=== PATIENT | female | born 1965 | race Caucasian/White ===

== ENCOUNTER 2023-01-17 09:35 | Inpatient (IN) ==
[2023-01-17 10:42] LABS: Basophils # (auto) 0.03 K/uL (0-0.2); Basophils % (auto) 0.6 %; Eosinophils # (auto) 0.11 K/uL (0-0.50); Eosinophils % (auto) 2.1 %; Hematocrit (blood only) 33.2 % (37.0-47.0); Hemoglobin 11.1 g/dl (12.0-16.0); Immature Granulocytes # (auto) 0.02 K/uL (0.01-0.20); Immature Granulocytes % (auto) 0.4 %; Lymphocytes # (auto) 0.96 K/uL (1.2-3.4); Lymphocytes % (auto) 18.1 %; Mean Corpuscular Hgb Conc 33.4 g/dL (32.0-36.0); Mean Corpuscular Volume 89.7 fL (80.0-100.0); Mean Platelet Volume 10.5 fL (9.4-12.4); Monocytes # (auto) 0.26 K/uL (0.11-0.59); Monocytes % (auto) 4.9 %; Neutrophils # (auto) 3.92 K/uL (1.40-6.50); Neutrophils % (auto) 73.9 %; Platelet Count 183 K/uL (130-400); RDW Coefficient of Variation 14.5 % (11.5-14.5); RDW Standard Deviation 46.6 fL (36.4-46.3)
[2023-01-17 11:03] LABS: Anion Gap 9 (3-11); BUN Creatinine Ratio 19.6 (10-20); Blood Urea Nitrogen 9 mg/dl (6-23); Calcium 9.3 mg/dl (8.6-10.3); Carbon Dioxide 26 mmol/L (21-32); Chloride 105 mmol/L (98-107); Est GFR (African American) 126.2 ml/min; Est GFR (Non-African American) 108.9 ml/min; Glucose 102 mg/dl (70-99(Fasting)); Potassium 3.9 mmol/L (3.5-5.1); Sodium 140 mmol/L (136-145)
[2023-01-17 11:33] LABS: Prothrombin Time 11.4 Seconds (9.0-12.0)
--- NOTE | 2023-01-17 12:21 | Emergency Department Note ---
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 On arrival the patient is encephalopathic unable to follow commands but moving all extremities equally. Abdomen is nontender. Approximate 1 cm seen site of the mid upper abdomen where previous PEG tube had been displaced is without evidence of infection, discharge or bleeding. WBC and platelets within normal limits. H/H 11.1/33.2 without prior for comparison. Sodium 140 electrolytes otherwise unremarkable. Chemistry without metabolic acidosis. COVID-19 RNA, NAAT test negative. Case d/w [place] with Dr. Gabriella BACON who evaluated the patient at the bedside. Appreciate consultation and recommend ations for CT and medicine admission. CT abd/pelvis obtained and was negative for acute abnormalities. Patient referred for admission for continued supportive care and GI consultation. Case was discussed with [place], with Dr. Skip locke who will evaluate the patient for admission. Triage Nursing notes reviewed and agree them. Prior/outside medical records reviewed Vital Signs: reviewed Differential diagnosis: Feeding tube displacement, infection, intraabdominal trauma, obstruction among others considered. ER treatment provided: See below. Laboratory studies: See below Imaging studies: See below Consultation(s): [place] with [place], with Dr. 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 ROS: See above HPI for pertinent positives & negatives. A total of 10 systems reviewed and were otherwise negative. VITALS:See Below PHYSICAL EXAMINATION: GENERAL: Awake, encephalopathic, chronically ill-appearing, in no distress HENT: Normocephalic, atraumatic. Oropharynx with dry mucous membranes and otherwise unremarkable. EYES: Normal conjunctiva. Sclera non-icteric. NECK: Supple. No nuchal rigidity. FROM. No JVD. RESPIRATORY: Clear to auscultation. CARDIAC: Regular rate, normal rhythm. Extremities warm and well perfused. Pulses equal. ABDOMEN: Soft, non-distended. No tenderness to palpation. No rebound or guarding. ~1cm mid upper abdominal incision site of displaced PEG tube without discharge or bleeding. No crepitus. RECTAL: Deferred. MUSCULOSKELETAL: Chest examination reveals no tenderness. The back is symmetrical on inspection without obvious abnormality. There is no CVA tenderness to palpation. No joint edema. LOWER EXTREMITIES: Calves are equal size bilaterally and non-tender. No edema. No discoloration. NEURO: Encephalopathic. Moving all extremities equally. SKIN: No rash or jaundice noted. Larry Elizabeth MD Past Med/Surg History Medical History Compression fracture of T11 vertebra Encephalopathy HLD (hyperlipidemia) HTN (hypertension) Impaired swallowing Paranoid schizophrenia Surgical History History of colonoscopy 2019 History of esophagogastroduodenoscopy (EGD) 01/05/2023. At [facility] [place]. PEG tube placement secondary to neurological disorder causing impaired swallowing Family History Other Cancer Diabetes Hypertension Social History Smoking Status: Unknown if ever smoked Hx Alcohol Use: No Hx Substance Use: No Feels Safe at Home: Yes Allergies Allergies Allergy/AdvReac Type Severity Reaction Status Date / Time haloperidol [From Haldol] Allergy Unknown Unknown Unverified 01/17/23 12:35 Penicillins Allergy Unknown Unknown Unverified 01/17/23 12:35 tetanus toxoid, adsorbed Allergy Unknown Unknown Unverified 01/17/23 12:35 Home Meds Home Medications Medication Instructions Recorded Confirmed acetaminophen 325 mg tablet 650 mg PO Q4 PRN Pain 01/17/23 01/17/23 (Tylenol) bisacodyl 10 mg rectal suppository 10 mg UT DAILY PRN Constipation 01/17/23 01/17/23 dextrose 40 % oral gel 15 g PO ONCE PRN Hypoglycemia 01/17/23 01/17/23 dextrose 50 % in water (D50W) 25 g IV ONCE PRN Hypoglycemia 01/17/23 01/17/23 enoxaparin 40 mg/0.4 mL 40 mg subcut DAILY 01/17/23 01/17/23 subcutaneous syringe levetiracetam 1,000 mg tablet 1,000 mg PO Q12H 01/17/23 01/17/23 (Keppra) magnesium hydroxide 400 mg/5 mL 30 ml PO DAILY PRN Constipation 01/17/23 01/17/23 oral suspension (Milk of Magnesia) omeprazole magnesium 10 mg oral 40 mg PO DAILY 01/17/23 01/17/23 suspension,delayed release polyethylene glycol 3350 17 17 g PO DAILY PRN Constipation 01/17/23 01/17/23 gram/dose oral powder (Miralax) sennosides 8.6 mg-docusate sodium 1 tab-cap PO DAILY PRN Constipation 01/17/23 01/17/23 50 mg tablet (Senokot-S) sodium phosphates 19 gram-7 118 ml UT DAILY PRN Constipation 01/17/23 01/17/23 gram/118 mL enema (Fleet Enema) Results & Data (ED) Vital Signs Vital Signs - 24 hr 01/17/23 09:22 01/17/23 11:59 01/17/23 14:00 Temperature 36.6 C 36.5 C Temperature Source Axillary Oral Pulse Rate 113 H Pulse Rate [Apical] 88 88 Respiratory Rate 18 18 18 Respiratory Effort / Characteristics Non-Labored Respiratory Depth Normal Respiratory Pattern Regular Blood Pressure 124/77 Blood Pressure [Right Arm] 139/102 H 135/91 Blood Pressure Mean 92 Blood Pressure Mean [Right Arm] 114 105 Blood Pressure Position Lying Pulse Oximetry 96 95 95 Oxygen Delivery Method Room Air Room Air Room Air Sepsis Recent Fever Within 48 Hours No Sepsis New/Unexplained Change in Mental Status No Sepsis Action Taken by Nursing No Action Required Laboratory Data Attestation: I reviewed the patient's lab results. 01/17/23 10:01/17/23 10: Lab Results 01/17/23 01/17/23 01/17/23 Range/Units 10: 10:25 06: WBC 5.30 (4.8-10.8) K/ul RBC 3.70 L (4.20-5.40) M/uL Hgb 11.1 L (12.0-16.0) g/dl Hct 33.2 L (37.0-47.0) % MCV 89.7 (80.0-100.0) fL MCH 30.0 (25.0-34.0) pg MCHC 33.4 (32.0-36.0) g/dL RDW Std Deviation 46.6 H (36.4-46.3) fL RDW Coeff of Francisco 14.5 (11.5-14.5) % Plt Count 183 (130-400) K/uL MPV 10.5 (9.4-12.4) fL Immature Gran % (Auto) 0.4 % Neut % (Auto) 73.9 % Lymph % (Auto) 18.1 % [place] % (Auto) 4.9 % Eos % (Auto) 2.1 % Baso % (Auto) 0.6 % Neut # (Auto) 3.92 (1.40-6.50) K/uL Lymph # (Auto) 0.96 L (1.2-3.4) K/uL [place] # (Auto) 0.26 (0.11-0.59) K/uL Eos # (Auto) 0.11 (0-0.50) K/uL Baso # (Auto) 0.03 (0-0.2) K/uL Immature Gran # (Auto) 0.02 (0.01-0.20) K/uL PT 11.4 (9.0-12.0) Seconds INR 1.0 (0.9-1.1) Sodium 140 (136-145) mmol/L Potassium 3.9 (3.5-5.1) mmol/L Chloride 105 (98-107) mmol/L Carbon Dioxide 26 (21-32) mmol/L Anion Gap 9 (3-11) BUN 9 (6-23) mg/dl Creatinine 0.46 L (0.6-1.2) mg/dl Est Cr Clr Drug Dosing Not Reportable Est GFR ( Amer) 126.2 ml/min Est GFR (Non-Af Amer) 108.9 ml/min BUN/Creatinine Ratio 19.6 (10-20) Glucose 102 H (70-99(Fasting)) mg/dl Calcium 9.3 (8.6-10.3) mg/dl SARS-CoV-2, RNA, NAAT (NEGATIVE) 01/17/23 Range/Units 10:38 WBC (4.8-10.8) K/ul RBC (4.20-5.40) M/uL Hgb (12.0-16.0) g/dl Hct (37.0-47.0) % MCV (80.0-100.0) fL MCH (25.0-34.0) pg MCHC (32.0-36.0) g/dL RDW Std Deviation (36.4-46.3) fL RDW Coeff of Francisco (11.5-14.5) % Plt Count (130-400) K/uL MPV (9.4-12.4) fL Immature Gran % (Auto) % Neut % (Auto) % Lymph % (Auto) % [place] % (Auto) % Eos % (Auto) % Baso % (Auto) % Neut # (Auto) (1.40-6.50) K/uL Lymph # (Auto) (1.2-3.4) K/uL [place] # (Auto) (0.11-0.59) K/uL Eos # (Auto) (0-0.50) K/uL Baso # (Auto) (0-0.2) K/uL Immature Gran # (Auto) (0.01-0.20) K/uL PT (9.0-12.0) Seconds INR (0.9-1.1) Sodium (136-145) mmol/L Potassium (3.5-5.1) mmol/L Chloride (98-107) mmol/L Carbon Dioxide (21-32) mmol/L Anion Gap (3-11) BUN (6-23) mg/dl Creatinine (0.6-1.2) mg/dl Est Cr Clr Drug Dosing Est GFR ( Amer) ml/min Est GFR (Non-Af Amer) ml/min BUN/Creatinine Ratio (10-20) Glucose (70-99(Fasting)) mg/dl Calcium (8.6-10.3) mg/dl SARS-CoV-2, RNA, NAAT NEGATIVE (NEGATIVE) Administered Medications Enoxaparin Sodium (Enoxaparin Inj 40 Mg/0.4 Ml Syr) 40 mg SQ Q24H [facility] Stop: 02/16/23 18:29 Last Admin: 01/17/23 19:20 Dose: 40 mg Documented By: NICKO Levetiracetam 1,000 mg/ Sodium (Chloride) 110 mls @ 440 mls/hr IV BID [facility] Stop: 02/16/23 20:59 Last Infusion: 01/17/23 21:41 Dose: 0 mls/hr Documented By: Admin: 01/17/23 21:00 Dose: 440 mls/hr Documented By: INEZ Dextrose (D10w) 1,000 mls @ 40 mls/hr IV .Q24H [facility] Stop: 02/16/23 17:56 Last Admin: 01/17/23 19:05 Dose: 40 mls/hr Documented By: NICKO Ceftriaxone Sodium 2,000 mg/ (Dextrose) 70 mls @ 100 mls/hr IV Q24H [facility]; Protocol Stop: 01/19/23 18:29 Last Infusion: 01/17/23 19:10 Dose: 0 mls/hr Documented By: Admin: 01/17/23 18:25 Dose: 100 mls/hr Documented By: PHILOMENA Discontinued Medications Ceftriaxone Sodium (Ceftriaxone Sodium 2000mg/70ml D5w) Confirm Administered Dose 2,000 mg IV .STK-MED ONE Stop: 01/17/23 18:20 Last Admin: 01/17/23 18:25 Dose: Not Given Documented By: PHILOMENA Ioversol (Optiray 320 500ml) 94 ml IV ONCE ONE Stop: 01/17/23 12:38 Last Admin: 01/17/23 12:37 Dose: 94 ml Documented By: MICHAEL Miscellaneous (Patient's Height Needed) 1 each N/A NOW STA Stop: 01/17/23 18:11 Last Admin: 01/17/23 18:17 Dose: 1 each Documented By: PHILOMENA Imaging Data Radiologist's Impression: Abdomen/Pelvis CT 01/17/23 12:04 CT abd pelvis IV con only CLINICAL HISTORY: displaced PEG tube (newly placed 01/05) TECHNIQUE: Helical axial images of the abdomen and pelvis were obtained and displayed. Automated dose lowering techniques and/or adjustment according to patient size were utilized for this exam. This exam was performed with intravenous contrast. CT DOSE: 987.13 mGy.cm COMPARISON: None available at the time of this dictation. FINDINGS: Lower chest: No acute abnormality. Liver: Unremarkable. No focal lesions are seen. Gallbladder and biliary tree: No calcified gallstones. Normal caliber wall. No intra- or extrahepatic biliary ductal dilation. Pancreas: Unremarkable, no focal lesions. Spleen: Calcifications are noted in the spleen compatible with prior granulomatous disease. Adrenals: 16 mm left adrenal nodule. Kidneys and ureters: Unremarkable. Bladder: Villarreal catheter is seen. Reproductive organs: Calcified fibroid is incidentally noted. Bowel: The appendix is normal. Large amount of stool is noted in the rectum without evidence of inspissation, rectal contents appear liquid. Lymph nodes Retroperitoneal: Unremarkable. Pelvic: Unremarkable. Mesenteric: Unremarkable. Peritoneum: No pneumoperitoneum is seen. Vessels: Unremarkable. Abdominal wall: Tract of a previous PEG tube is noted. Bones: Compression deformity of T11 is age indeterminate approximately 3 mm retropulsion is seen. Degenerative changes are seen. IMPRESSION: 1. Prominent liquid contents are seen in the colon. Expected tract of removed PEG tube noted. 2. Age-indeterminate compression deformity of T11 with some retropulsion. Correlation with point tenderness and prior imaging is recommended, if available. ACT 112: Negative or not required by law. Electronically signed by: Candelario Rodgers M.D. 01/17/2023 1:03 PM Discharge Plan Visit Data Chief Complaint: Feeding/PEG Tube Replacement ED Provider: Larry Elizabeth Discharge Problem: Encephalopathy, Impaired swallowing, Dislodged gastrostomy tube Patient Disposition: Admitted As Inpatient Discharge Instructions Interventions: ED Discharge Assessment Last Done: 01/17/23 17:56
[2023-01-17] MEDS ORDERED: OPTIRAY 320 500ml IV ONE (12:37)
--- NOTE | 2023-01-17 12:48 | Communication Note ---
Date of Service: January 17, 2023 57 year old female with schizophrenia, bipolar disorder, hypertension, hyperlipidemia recent admission to [facility] [place], [place] after being found down and unresponsive at home on December 14, w/ severe hyponatremia and nonconvulsive status epilepticus requiring intubation in the ICU. Patient was extubated on 12/28, but still has severe encephalopathy and was not able to take PO intake and an on 01/05/23 an endoscopically externally removable PEG was placed. Presented to [facility] ED from rehab with a pulled PEG without tube in place in tract. Recommend Ct imaging to rule out perforation/peritonitis given premature and traumatic pulled PEG. If PEG will need to be replaced, she will need to be admitted for PEG placement. However, this appears high risk for pulling again. Will defer to endoscopic regarding re-placement of PEG. Keep NPO. I personally saw and evaluated the patient on 01/17/2023 with [place] [place] and agree with her findings and plan of care. Patient recently had a PEG tube placed less than 2 weeks ago and has already pulled it out. CT imaging reviewed without any evidence of perforation. Unfortunately, that PEG tube site has already closed and tract is not mature. It would not be safe to place another PEG tube at this time and given that patient has already pulled this one out I would not recommend another PEG tube. On exam in the ER she was combative and pulling at the sheets and her gown and I suspect she will pull another PEG tube out. I spoke with my partner who will be here Sunday and he is also not comfortable performing a PEG tube either. Recommend TPN if patient needs ongoing nutrition. Anisha Quiroz, Gastroenterology and Hepatology
--- NOTE | 2023-01-17 13:05 | CT Scan Report ---
CT abd pelvis IV con only CLINICAL HISTORY: displaced PEG tube (newly placed 01/05) TECHNIQUE: Helical axial images of the abdomen and pelvis were obtained and displayed. Automated dose lowering techniques and/or adjustment according to patient size were utilized for this exam. This e xam was performed with intravenous contrast. CT DOSE: 987.13 mGy.cm COMPARISON: None available at the time of this dictation. FINDINGS: Lower chest: No acute abnormality. Liver: Unremarkable. No focal lesions are seen. Gallbladder and biliary tree: No calcified gallstones. Normal caliber wall. No intra- or extrahepatic biliary ductal dilation. Pancreas: Unremarkable, no focal lesions. Spleen: Calcifications are noted in the spleen compatible with prior granulomatous disease. Adrenals: 16 mm left adrenal nodule. Kidneys and ureters: Unremarkable. Bladder: Villarreal catheter is seen. Reproductive organs: Calcified fibroid is incidentally noted. Bowel: The appendix is normal. Large amount of stool is noted in the rectum without evidence of inspi ssation, rectal contents appear liquid. Lymph nodes Retroperitoneal: Unremarkable. Pelvic: Unremarkable. Mesenteric: Unremarkable. Peritoneum: No pneumoperitoneum is seen. Vessels: Unremarkable. Abdominal wall: Tract of a previous PEG tube is noted. Bones: Compression deformity of T11 is age indeterminate approximately 3 mm retropulsion is seen. Deg enerative changes are seen. IMPRESSION: 1. Prominent liquid contents are seen in the colon. Expected tract of removed PEG tube noted. 2. Age-indeterminate compression deformity of T11 with some retropulsion. Correlation with point ten derness and prior imaging is recommended, if available. ACT 112: Negative or not required by law. Electronically signed by: Candelario Rodgers M.D. 01/17/2023 1:03 PM
--- NOTE | 2023-01-17 14:51 | History & Physical Report ---
Date of Service January 17, 2023 Assessment & Plan (1) Encephalopathy: Plan: Patient is a 57-year-old female with PMH HTN, hyperlipidemia, paranoid schizophrenia, hyponatremia secondary to psychogenic polydipsia presented to ER from [facility] secondary to pulling her PEG tube. Admission at [facility] 12/14/22-01/09/2023 for encephalopathy, severe hyponatremia. Had long-term EEG that initially showed nonconvulsive status epilepticus. Last long-term EEG on 12/19/2022 recorded no seizures. Continued with encephalopathy throughout hospital course. It was thought that patient's encephalopathy was likely multifactorial secondary to hypoactive delirium, thymic injury and possible infection. Neurology had reported unclear prognosis. Patient continues to be encephalopathic One-to-one observation Discussed with patient's sister Tricia. Tricia would like a palliative care consult and family meeting to discuss goals of care. Tricia is currently out of town but will return in the afternoon of 01/18/2023. Is available by phone (number in chart). Palliative consult May need to consider neurology consult (2) Impaired swallowing: Plan: Due to encephalopathy patient was unable to take p.o. PEG tube placed on 01/05/2023 Today patient pulled out PEG tube GI consulted and reported PEG tube site already closed and did not feel it was safe to place another PEG tube secondary to patient's current altered mental status and likelihood of pulling out any additional PEG tube. GI had recommend TPN if patient needs ongoing nutrition. Recommends to reach back out to GI if any further needs. Speech consult May need to consider nutrition consult after goals of care discussion with family (3) Sinus tachycardia: Plan: History sinus tachycardia during hospital admission at [facility] 12/24-01/23 without noted underlying cause. Had negative CTA chest Today in ER sinus tachycardia noted, rate low 100s. No leukocytosis Monitor on telemetry Obtain EKG Recently treated for aspiration pneumonia with Rocephin, Flagyl. Patient treated for UTI with Rocephin. 12/28/2022 urine cultures positive Pseudomonas Enterococcus. Has Villarreal cath in place (4) Compression fracture of T11 vertebra: Plan: Subacute T11 compression deformity noted on outside imaging in 12/2022 (5) Paranoid schizophrenia: Plan: History of paranoid schizophrenia Previously on Cogentin, Seroquel, sertraline Not currently on medications secondary to current encephalopathy (6) HTN (hypertension): Plan: BP stable Not currently on medications Monitor BP (7) HLD (hyperlipidemia): Plan: Not on medication DVT Prophylaxis Lovenox SQ DNR/DNI as per discussion with pt's sister Tricia Follows with Dr Peoples for routine care Pt was seen and care coordinated with Dr Valdivia. See addendum I spent a total of 90 minutes reviewing notes, outpatient records, labs, medication, coordinating, documenting and providing care for this patient excluding time spent in the performance of separately billed services. History of Present Illness Chief Complaint: Pulled PEG tube [facility] Patient is a 57-year-old female with PMH HTN, hyperlipidemia, paranoid schizophrenia, hyponatremia secondary to psychogenic polydipsia presented to ER from [facility] rehab secondary to pulling her PEG tube out. History obtained from extensive chart review. Patient with history hospitalization 12/14/2022- 01/09/2023 at [facility] for encephalopathy. Patient initially presented to [facility] reportedly found unresponsive and was intubated and was transferred to [facility]. Patient had severe hyponatremia with a sodium of 105. -Patient had long-term EEG monitoring revealed nonconvulsive status epilepticus. Patient was loaded with Keppra and started on Versed. Given status epilepticus patient's sodium quickly corrected to 115 within the first 24 hours. Patient's sedation was weaned on 12/18 and initially became more alert however reported mental status worsened again. Long-term EEG 12/19/2022 no seizures recorded. Patient had acute hypoxemic respiratory failure secondary to aspiration pneumonia. Patient extubated 12/28/2022 however her mental status did not improve. -12/28/2022 urine cultures positive Pseudomonas, Enterococcus. Urine cultures 01/02 negative. Patient completed antibiotic course for aspiration pneumonia, and UTI with Rocephin, Flagyl -Patient continued with encephalopathy throughout hospital course. It was thought that patient's encephalopathy was likely multifactorial secondary to hypoactive delirium, thymic injury and possible infection. It is reported had unclear prognosis. -Due to encephalopathy patient was unable to take p.o., family discussion took place and wished for PEG tube. Patient had PEG tube placed on 01/05/2023. It is reported that several meetings with patient's family took place. -It was noted during entire hospitalization patient had sinus tachycardia, had negative CT PE study on 01/04/2023, TSH within normal limits. It was recommended patient be on Keppra 1 g twice daily indefinitely -Had noted subacute T11 compression deformity -MRI brain on 12/23/22 showing "interval progression of diffuse signal abnormality involving the cortical ribbon with posterior convexity predissection and development of new signal abnormality symmetrically involving the bilateral caudal nuclei, putamen, medial thalami with relative sparing of global bilaterally. Stable associated mass effect manifested, including bilateral sulcal effacement. Findings may represent a combination of metabolic encephalopathy and seizures/postictal related changes. -MRI C-spine 12/23/2022: Edema and dorsal cervical paraspinal musculature and soft tissues extending from C1-C6. Multilevel spondylitic changes, most prominent at C5-C6 where there is mild spinal canal stenosis and mild to moderate bilateral neural foraminal narrowing. C4-C5 moderate right and moderate to severe left neural foraminal narrowing and no significant spinal canal stenosis. Patient was ultimately discharged to [facility] for rehab. It is reported that patient has had continued encephalopathy. Today she pulled out her PEG tube and was referred to ER for further evaluation and possible replacement of PEG tube. Allergies Allergy/AdvReac Type Severity Reaction Status Date / Time haloperidol [From Haldol] Allergy Unknown Unknown Unverified 01/17/23 12:35 Penicillins Allergy Unknown Unknown Unverified 01/17/23 12:35 tetanus toxoid, adsorbed Allergy Unknown Unknown Unverified 01/17/23 12:35 Home Medications Medication Instructions Recorded Confirmed Type acetaminophen 325 mg tablet 650 mg PO Q4 PRN Pain 01/17/23 01/17/23 History (Tylenol) bisacodyl 10 mg rectal suppository 10 mg NV DAILY PRN Constipation 01/17/23 01/17/23 History dextrose 40 % oral gel 15 g PO ONCE PRN Hypoglycemia 01/17/23 01/17/23 History dextrose 50 % in water (D50W) 25 g IV ONCE PRN Hypoglycemia 01/17/23 01/17/23 History enoxaparin 40 mg/0.4 mL 40 mg subcut DAILY 01/17/23 01/17/23 History subcutaneous syringe levetiracetam 1,000 mg tablet 1,000 mg PO Q12H 01/17/23 01/17/23 History (Keppra) magnesium hydroxide 400 mg/5 mL 30 ml PO DAILY PRN Constipation 01/17/23 01/17/23 History oral suspension (Milk of Magnesia) omeprazole magnesium 10 mg oral 40 mg PO DAILY 01/17/23 01/17/23 History suspension,delayed release polyethylene glycol 3350 17 17 g PO DAILY PRN Constipation 01/17/23 01/17/23 History gram/dose oral powder (Miralax) sennosides 8.6 mg-docusate sodium 1 tab-cap PO DAILY PRN Constipation 01/17/23 01/17/23 History 50 mg tablet (Senokot-S) sodium phosphates 19 gram-7 118 ml NV DAILY PRN Constipation 01/17/23 01/17/23 History gram/118 mL enema (Fleet Enema) Past Med/Surg History Medical History (Updated 01/17/23 @ 19:17 by Vikki Leon PA-C) Compression fracture of T11 vertebra Encephalopathy HLD (hyperlipidemia) HTN (hypertension) Paranoid schizophrenia Surgical History (Updated 01/17/23 @ 19:09 by Vikki Leon PA-C) History of colonoscopy 2019 History of esophagogastroduodenoscopy (EGD) 01/05/2023. At [facility]. PEG tube placement secondary to neurological disorder causing impaired swallowing Family History (Updated 01/17/23 @ 19:10 by Vikki Leon PA-C) Other Cancer Diabetes Hypertension Social History (Updated 01/17/23 @ 19:10 by Vikki Leon PA-C) Smoking Status: Never smoker Hx Alcohol Use: No Hx Substance Use: No Feels Safe at Home: Yes Review of Systems Review of Systems: Unobtainable due to cognitive status Physical Exam Physical Exam: General: WDWN Head: normocephalic, atraumatic Eyes: PERRL, EOM's intact, conjunctiva non-injected, anicteric ENT: normal inspection external ears, nose, mucous membranes moist Neck: supple, trachea midline, non-tender Lungs: clear, no respiratory distress, no wheezing/rhonchi/rales CV: RRR, no murmur, no JVD, no pretibial edema Abd: normal BS, soft, non-tender Ext: no cyanosis, no calf tenderness Neuro: Alert, eyes are open, pulling at blankets and lines, does not follow commands, does not speak Skin: warm, dry Results & Data Results & Data Vital Signs (Past 12 Hours) Vital Signs Temp Pulse Pulse Resp BP BP Pulse Ox 01/17/23 14:00 88 18 135/91 95 01/17/23 11:59 36.5 C 88 18 139/102 H 95 01/17/23 09:22 36.6 C 113 H 18 124/77 96 O2 Del Method 01/17/23 14:00 Room Air 01/17/23 11:59 Room Air 01/17/23 09:22 Room Air Laboratory Results Short CBC 01/17/23 Range/Units 10:23 WBC 5.30 (4.8-10.8) K/ul Hgb 11.1 L (12.0-16.0) g/dl Hct 33.2 L (37.0-47.0) % Plt Count 183 (130-400) K/uL BMP 01/17/23 10:23 Sodium 140 Potassium 3.9 Chloride 105 Carbon Dioxide 26 BUN 9 Creatinine 0.46 L Glucose 102 H Calcium 9.3 Diagnostic Findings Abdomen/Pelvis CT 01/17/23 12:04 CT abd pelvis IV con only CLINICAL HISTORY: displaced PEG tube (newly placed 01/05) TECHNIQUE: Helical axial images of the abdomen and pelvis were obtained and displayed. Automated dose lowering techniques and/or adjustment according to patient size were utilized for this exam. This exam was performed with intravenous contrast. CT DOSE: 987.13 mGy.cm COMPARISON: None available at the time of this dictation. FINDINGS: Lower chest: No acute abnormality. Liver: Unremarkable. No focal lesions are seen. Gallbladder and biliary tree: No calcified gallstones. Normal caliber wall. No intra- or extrahepatic biliary ductal dilation. Pancreas: Unremarkable, no focal lesions. Spleen: Calcifications are noted in the spleen compatible with prior granulomatous disease. Adrenals: 16 mm left adrenal nodule. Kidneys and ureters: Unremarkable. Bladder: Villarreal catheter is seen. Reproductive organs: Calcified fibroid is incidentally noted. Bowel: The appendix is normal. Large amount of stool is noted in the rectum without evidence of inspissation, rectal contents appear liquid. Lymph nodes Retroperitoneal: Unremarkable. Pelvic: Unremarkable. Mesenteric: Unremarkable. Peritoneum: No pneumoperitoneum is seen. Vessels: Unremarkable. Abdominal wall: Tract of a previous PEG tube is noted. Bones: Compression deformity of T11 is age indeterminate approximately 3 mm retropulsion is seen. Degenerative changes are seen. IMPRESSION: 1. Prominent liquid contents are seen in the colon. Expected tract of removed PEG tube noted. 2. Age-indeterminate compression deformity of T11 with some retropulsion. Correlation with point tenderness and prior imaging is recommended, if available. ACT 112: Negative or not required by law. Electronically signed by: Candelario Rodgers M.D. 01/17/2023 1:03 PM Supervising Physician Co-Signing Physician Notes Patient seen and examined independently. Discussed with above provider. 57-year-old female with prolonged hospitalization at [facility] for encephalopathy and severe hyponatremia. See above for details. Brought here after she pulled out the PEG tube. GI consulted; reported that PEG tube site is already closed; did not feel safe to place another PEG tube. Plan for swallow evaluation tomorrow AM. Palliative consulted for goals of care discussion.
[2023-01-17] MEDS ORDERED: DEXTROSE 10% 1,000 ML IV SCH (17:57)
[2023-01-17] MEDS ORDERED: SOD PHOSPHATE/SOD BIPHOSPHATE ENEMA 132 ML BTL PR PRN (17:57)
[2023-01-17] MEDS ORDERED: ACETAMINOPHEN 1,000 MG/100 ML VIAL IV PRN (17:57)
[2023-01-17] MEDS ORDERED: ONDANSETRON INJ 2 MG/ML 2 ML VIAL IV PRN (17:57)
[2023-01-17] MEDS ORDERED: bisacodyL 10 MG SUPP PR PRN (17:57)
[2023-01-17] MEDS ORDERED: Patient's HEIGHT Needed STA (18:10)
[2023-01-17] MEDS ORDERED: cefTRIAXone SODIUM 2000MG/70ML D5W IV ONE (18:19)
[2023-01-17] MEDS: cefTRIAXone SODIUM 2,000 MG in DEXTROSE 5% 50 ML IV SCH (18:25)
[2023-01-17] MEDS: ENOXAPARIN INJ 40 MG/0.4 ML SYR SQ SCH (19:20)
[2023-01-17] MEDS: levETIRAcetam 1,000 MG in 0.9 % SODIUM CHLORIDE 100 ML IV SCH (21:00)
[2023-01-18 04:04] LABS: Hemoglobin 10.2 g/dl (12.0-16.0); Mean Corpuscular Hemoglobin 29.7 pg (25.0-34.0); Mean Corpuscular Hgb Conc 32.9 g/dL (32.0-36.0); Mean Corpuscular Volume 90.4 fL (80.0-100.0); Mean Platelet Volume 10.2 fL (9.4-12.4); Platelet Count 183 K/uL (130-400); RDW Coefficient of Variation 14.4 % (11.5-14.5); RDW Standard Deviation 47.5 fL (36.4-46.3); Red Blood Count 3.43 M/uL (4.20-5.40); White Blood Count 5.14 K/ul (4.8-10.8)
[2023-01-18 04:17] LABS: Albumin Globulin Ratio 1.3 (0.9-2); Albumin Level 3.4 gm/dl (3.4-5.0); BUN Creatinine Ratio 14.6 (10-20); Bilirubin,Total 0.4 mg/dl (0.2-1.0); Calcium 8.8 mg/dl (8.6-10.3); Creatinine Clr Calc Pharmacy 113.7 ml/min; Est GFR (African American) 124.4 ml/min; Est GFR (Non-African American) 107.4 ml/min; Globulin 2.7 gm/dl (2.5-4.0); Potassium 3.4 mmol/L (3.5-5.1); Total Protein 6.1 gm/dl (6.0-8.3)
[2023-01-18] MEDS: levETIRAcetam 1,000 MG in 0.9 % SODIUM CHLORIDE 100 ML IV SCH ×2 (08:33→20:57)
[2023-01-18] MEDS: D5W AND 1/2NSS + 20MEQ KCL 20 MEQ/1,000 ML BAG IV SCH (09:09)
[2023-01-18] MEDS: POTASSIUM CHLORIDE / WTR 10 MEQ/100 ML PLCT IV SCH ×2 (09:12→11:13)
--- NOTE | 2023-01-18 10:19 | Electrocardiogram Report ---
Test Reason : Blood Pressure : / mmHG Vent. Rate : 104 BPM Atrial Rate : 104 BPM P-R Int : 124 ms QRS Dur : 076 ms QT Int : 328 ms P-R-T Axes : 034 -18 036 degrees QTc Int : 431 ms Sinus tachycardia Minimal voltage criteria for LVH, may be normal variant Borderline ECG No previous ECGs available Confirmed by Gopi Olmstead ([id number]) on 01/18/2023 10:18:35 AM Referred By: [facility] Confirmed By:Lenin Olmstead
--- NOTE | 2023-01-18 16:14 | Palliative Care Consultation ---
Date of Consultation January 18, 2023 Assessment & Plan (1) Palliative care by specialist: Patient is not decisional. Video conference held with sister and RENAN Clarke Provided overview of Palliative Medicine, a subspecialty that provides specialized medical care for people living with a serious illness by offering a focus on quality of life. Palliative Medicine is often conflated with hospice: I advised patient/family that Palliative and hospice can be partners but we are not the same. It is important to understand the difference so that we may be informed, and not afraid. Palliative Medicine works to improve QOL through reduction of symptom burden/more control over their illness, for both the patient and family. Palliative medicine clinicians are board certified, specially-trained and another member of the patient's medical care team. We often provide an extra layer of support because our care is based on the needs of the patient, not the prognosis; as such, it's appropriate at any age/advancing stage of a serious illness and can be provided along with curative treatment. Palliative Medicine clinicians are also trained in advanced communication methodologies, to facilitate complex discussions about advanced illness planning, which are needed to help assure that the treatment choices match the patient's goals, aka delivering Goal Concordant care. Finally, we discussed that hospice is a visiting nurse service that focuses on care delivered at the very end of life for patients with terminal illness, with life expectancy less than 6 month. (2) Discussion about advance care planning held with family member: Video call with face to face audio and video x 45min Advance illness planning conversations are conducted to review goals and expectations, support shared decision-making, and engage in disease specific advance care planning. This type of advance care planning is sometimes referred to as 'preparedness planning. It is used to review the risks and benefits of offered therapy, elicit and deepen understanding of the underlying illness and therapeutic options, ensure adequate psychosocial support, address existential concerns and coping, and engage in end-of-life planning. Preparedness planning is not meant to replace informed consent discussions. Palliative medicine plays a role in the process of deepening a patients understanding of this specific medical intervention and ensuring this treatment aligns with their goals of care remains a central tenet of the planning conversation. I met with sister/RENAN Clarke. She shares pt history of being dx with schizophrenia about 15 yr ago and for some time managed ok. Lived in her own apartment, tended to be self focused but was a sweet soul with family and they all kept in touch. When They didn't hear from her for a few days after Easter they sent police to do wellness check and found her collapsed/unresponsive. This was initial admit for hyponatremia ? believed to be from psych meds - life flight to [facility], seizure, intubated then extubated but remained in a coma which led to dc to coma care facility. ultimately "woke up" and was transferred to [facility] for rehab. Stopped eating, ultimately had a PEG then this admission for ripping out PEG. Of note when debra went to visit Tamara at [facility] last week, Tamara was able to go from sit to stand without much assistance. Tamara understands why a PEG can't be replaced and is not keen on TPN bao given risk that pt will remove/pull/dislodge the IV site/port. She is leaning towards comfort care but there is another sister with whom all of this needs to be discussed before making any final decision. We are going to follow up vis Zoom tomorrow at 914. (3) Dislodged gastrostomy tube: (4) Impaired swallowing: (5) Encephalopathy: (6) Paranoid schizophrenia: Plan Follow up video conference with POA tomorrow at 914 Thank you for allowing us to participate in the ongoing care of this patient. Please don't hesitate to call or page with any additional concerns. Dr. Hannah Wheeler DNP Director, Palliative Care History of Present Illness Reason for Consultation: GOC / family discussion Attending Physician: Zach Richter MD History of Present Illness persistent encephalopathy with agitation ripped out her PEG while at [facility] Allergies Allergy/AdvReac Type Severity Reaction Status Date / Time haloperidol [From Haldol] Allergy Unknown Unknown Unverified 01/17/23 12:35 Penicillins Allergy Unknown Unknown Unverified 01/17/23 12:35 tetanus toxoid, adsorbed Allergy Unknown Unknown Unverified 01/17/23 12:35 Home Medications Medication Instructions Recorded Confirmed Type acetaminophen 325 mg tablet 650 mg PO Q4 PRN Pain 01/17/23 01/17/23 History (Tylenol) bisacodyl 10 mg rectal suppository [address] DAILY PRN Constipation 01/17/23 01/17/23 History dextrose 40 % oral gel 15 g PO ONCE PRN Hypoglycemia 01/17/23 01/17/23 History dextrose 50 % in water (D50W) 25 g IV ONCE PRN Hypoglycemia 01/17/23 01/17/23 History enoxaparin 40 mg/0.4 mL 40 mg subcut DAILY 01/17/23 01/17/23 History subcutaneous syringe levetiracetam 1,000 mg tablet 1,000 mg PO Q12H 01/17/23 01/17/23 History (Keppra) magnesium hydroxide 400 mg/5 mL 30 ml PO DAILY PRN Constipation 01/17/23 01/17/23 History oral suspension (Milk of Magnesia) omeprazole magnesium 10 mg oral 40 mg PO DAILY 01/17/23 01/17/23 History suspension,delayed release polyethylene glycol 3350 17 17 g PO DAILY PRN Constipation 01/17/23 01/17/23 History gram/dose oral powder (Miralax) sennosides 8.6 mg-docusate sodium 1 tab-cap PO DAILY PRN Constipation 01/17/23 01/17/23 History 50 mg tablet (Senokot-S) sodium phosphates 19 gram-[address] DAILY PRN Constipation 01/17/23 01/17/23 History gram/118 mL enema (Fleet Enema) Patient History Medical History (Updated 01/18/23 @ 16:06 by Hannah Wheeler DNP) Compression fracture of T11 vertebra Discussion about advance care planning held with family member Encephalopathy HLD (hyperlipidemia) HTN (hypertension) Impaired swallowing Palliative care by specialist Paranoid schizophrenia Surgical History History of colonoscopy 2019 History of esophagogastroduodenoscopy (EGD) 01/05/2023. At [facility]. PEG tube placement secondary to neurological disorder causing impaired swallowing Family History Other Cancer Diabetes Hypertension Social History Smoking Status: Unknown if ever smoked Hx Alcohol Use: No Hx Substance Use: No Communication Ability: Impaired Feels Safe at Home: Yes Review of Systems Review of Systems: Unobtainable due to reduced consciousness Physical Exam Physical Exam: pt agitated and at times combative, did not allow exam Results & Data Vital Signs (Past 12 Hours) Vital Signs Temp Pulse Resp BP BP Pulse Ox O2 Del Method 01/18/23 15:42 37 C 106 H 19 136/93 97 Room Air 01/18/23 13:51 105 H 18 130/85 97 Room Air 01/18/23 11:59 98 H 16 131/64 96 Room Air Laboratory Results data reviewed Diagnostic Findings data reviewed PG Care Time/CCT Total # of Minutes Spent Total Time Spent: 90 Total Time Spent with Patient: Total time spent is greater than 50% in coordination of care (as documented) at patient's floor/unit and/or counseling patient: 45min in ACP 45min in consult with chart review, discussion with teams/CM/primary, extensive chart review within [facility], [facility]. Advanced Care Planning 60361 Advanced Care Planning 30 Min 47565 Advanced Care Planning Additional 30 [place] [address] IN/OBS CONSULT LVL 5,80M Patient Type New History Comprehensive Exam Problem Focused Medical Decision Making High Complexity Diagnoses Palliative care by specialist Z51.5 Discussion about advance care planning held with family member Z71.0 Dislodged gastrostomy tube T85.528A Impaired swallowing R13.10 Encephalopathy G93.40 Paranoid schizophrenia F20.0 Additional Codes Advanced Care Planning - 87259 Advanced Care Planning 30 Min: 30873 Advanced Care Planning 30 Min ([id number]) Advanced Care Planning - 99517 Advanced Care Planning Additional 30 Min: 65136 Advanced Care Planning Additional 30 Min ([id number])
[2023-01-18] MEDS: cefTRIAXone SODIUM 2,000 MG in DEXTROSE 5% 50 ML IV SCH (18:38)
[2023-01-18] MEDS: ENOXAPARIN INJ 40 MG/0.4 ML SYR SQ SCH (18:38)
--- NOTE | 2023-01-18 18:40 | Hospitalist Progress Note ---
Date of Service January 18, 2023 Assessment & Plan (1) Encephalopathy: Plan: Patient is a 57-year-old female with PMH HTN, hyperlipidemia, paranoid schizophrenia, hyponatremia secondary to psychogenic polydipsia presented to ER from [facility] rehab secondary to pulling her PEG tube. Admission at [facility] [place] 12/14/22-01/09/2023 for encephalopathy, severe hyponatremia. Had long-term EEG that initially showed nonconvulsive status epilepticus. Last long-term EEG on 12/19/2022 recorded no seizures. Continued with encephalopathy throughout hospital course. It was thought that patient's encephalopathy was likely multifactorial secondary to hypoactive delirium, thymic injury and possible infection. Neurology had reported unclear prognosis. Patient continues to be encephalopathic One-to-one observation Discussed with patient's sister Tricia. Tricia would like a palliative care consult and family meeting to discuss goals of care. Appreciate palliative care input Family meeting tomorrow per palliative (2) Impaired swallowing: Plan: Due to encephalopathy patient was unable to take p.o. PEG tube placed on 01/05/2023 Patient pulled out PEG tube prior to admission GI consulted and reported PEG tube site already closed and did not feel it was safe to place another PEG tube secondary to patient's current altered mental status and likelihood of pulling out any additional PEG tube. GI had recommend TPN if patient needs ongoing nutrition. Recommends to reach back out to GI if any further needs. Speech consult May need to consider nutrition consult after goals of care discussion with family Continue current management (3) Sinus tachycardia: Plan: History sinus tachycardia during hospital admission at [facility] [place] 12/24-01/23 without noted underlying cause. Had negative CTA chest EKG consistent with sinus tachycardia Recently treated for aspiration pneumonia with Rocephin, Flagyl. Patient treated for UTI with Rocephin. 12/28/2022 urine cultures positive Pseudomonas Enterococcus. Has Villarreal cath in place (4) Compression fracture of T11 vertebra: Plan: Subacute T11 compression deformity noted on outside imaging in 12/2022 (5) Paranoid schizophrenia: Plan: History of paranoid schizophrenia Previously on Cogentin, Seroquel, sertraline Not currently on medications secondary to current encephalopathy (6) HTN (hypertension): Plan: BP stable Not currently on medications Monitor BP (7) HLD (hyperlipidemia): Plan: Not on medication DVT Prophylaxis Lovenox SQ Code Status DNR/DNI Admission and Anticipated Discharge Date Admission Date: January 17, 2023 Subjective Patient is seen and examined at bedside Unable to obtain any history due to cognitive status Discussed with palliative care today No distress on exam Sitter at bedside Review of Systems Review of Systems: Unobtainable due to cognitive status Physical Exam Physical Exam: Physical Exam: Vitals signs as noted above General Appearance:Moderately built and nourished, no apparent distress Head: normocephalic, Atraumatic Eyes: normal inspection, EOMI Neck: supple, Trachea midline Respiratory/Chest: Normal breath sounds, CTA, No accessory muscle use Cardiovascular: S1, S2, No murmur Abdomen/GI:Soft, Non tender, Bowel sounds present Extremities/Musculoskeletal:normal inspection, no edema Neurologic/Psych:Confused, grossly no focal neurological deficits Skin: normal color, warm Results & Data Results & Data Vital Signs (Past 12 Hours) Vital Signs Temp Pulse Pulse Resp BP BP Pulse Ox 01/18/23 16:48 110 H 01/18/23 15:42 37 C 106 H 19 136/93 97 01/18/23 13:51 105 H 18 130/85 97 01/18/23 11:59 98 H 16 131/64 96 O2 Del Method 01/18/23 16:48 01/18/23 15:42 Room Air 01/18/23 13:51 Room Air 01/18/23 11:59 Room Air
[2023-01-19] MEDS: D5W AND 1/2NSS + 20MEQ KCL 20 MEQ/1,000 ML BAG IV SCH (05:44)
[2023-01-19 08:07] LABS: Hematocrit (blood only) 33.2 % (37.0-47.0); Hemoglobin 11.2 g/dl (12.0-16.0); Mean Corpuscular Hemoglobin 29.6 pg (25.0-34.0); Mean Corpuscular Hgb Conc 33.7 g/dL (32.0-36.0); Mean Corpuscular Volume 87.6 fL (80.0-100.0); Mean Platelet Volume 10.1 fL (9.4-12.4); Platelet Count 172 K/uL (130-400); RDW Coefficient of Variation 14.3 % (11.5-14.5); RDW Standard Deviation 45.2 fL (36.4-46.3); Red Blood Count 3.79 M/uL (4.20-5.40); White Blood Count 4.94 K/ul (4.8-10.8)
[2023-01-19 08:20] LABS: BUN Creatinine Ratio 12.2 (10-20); Calcium 9.3 mg/dl (8.6-10.3); Creatinine Clr Calc Pharmacy 111.3 ml/min; Est GFR (African American) 123.6 ml/min; Est GFR (Non-African American) 106.6 ml/min; Magnesium 1.8 mg/dl (1.7-2.4)
[2023-01-19] MEDS: levETIRAcetam 1,000 MG in 0.9 % SODIUM CHLORIDE 100 ML IV SCH ×2 (08:33→20:20)
--- NOTE | 2023-01-19 09:25 | Palliative Care Progress Note ---
Date of Service January 19, 2023 Assessment & Plan (1) Palliative care by specialist: (2) Discussion about advance care planning held with family member: Plan: F/u videoconference for ACP with Tricia/sister and POA x 24min Tricia will be coming in to see pt today. She and her family would like a time limited trial of TPN , started now via IV/PICC and observed over a few days to see if she improves. They would also like to know if [facility] would take pt back with TPN. I advised Tamara TPN is still a time limited intervention and PICC line is not a adjunct faculty for medical terminology solution ie not for years of therapy. She verbalized understanding. She and family feel they just want to try and see if this can help/understand it is a long shot and if it fails or if pt pulls out her IV line then they will likely move to comfort care. They just aren't ready to move to comfort care yet given her age and they feel she "still has glimmers where she knows us and responds, so maybe she can get better." I told Tricia to ask nursing to page primary team and CM when she arrives so she can get the answer about [facility] as well as sign consent for TPN. (3) Dislodged gastrostomy tube: (4) Impaired swallowing: (5) Encephalopathy: (6) Paranoid schizophrenia: Admission and Anticipated Discharge Date Admission Date: January 17, 2023 Results & Data Vital Signs (Past 12 Hours) Vital Signs Temp Pulse Pulse Resp BP BP Pulse Ox 01/19/23 07:38 36.4 C L 99 H 18 121/79 96 01/19/23 07:24 103 H 01/19/23 04:00 36.7 C 94 H 18 125/86 98 01/18/23 22:01 91 H 01/18/23 22:39 36.7 C 99 H 18 129/85 97 O2 Del Method 01/19/23 07:38 Room Air 01/19/23 07:24 01/19/23 04:00 Room Air 01/18/23 22:01 01/18/23 22:39 Room Air PG Care Time/CCT Total # of Minutes Spent Total Time Spent with Patient: Total time spent is greater than 50% in coordination of care (as documented) at patient's floor/unit and/or counseling patient: Advanced Care Planning 77365 Advanced Care Planning 30 [place] [address] SUB INP/OBS CARE 2/35MIN Patient Type New History Detailed Medical Decision Making Moderate Complexity Diagnoses Palliative care by specialist Z51.5 Discussion about advance care planning held with family member Z71.0 Dislodged gastrostomy tube T85.528A Impaired swallowing R13.10 Encephalopathy G93.40 Paranoid schizophrenia F20.0 Additional Codes Advanced Care Planning - 64262 Advanced Care Planning 30 Min: 63717 Advanced Care Planning 30 Min ([id number])
[2023-01-19] MEDS ORDERED: DEXTROSE 10% 1,000 ML IV PRN (12:07)
[2023-01-19] MEDS ORDERED: TPN/PPN CONSULT PHARMACY PRN (12:14)
--- NOTE | 2023-01-19 12:53 | Pharmacy Report ---
Pharmacy PN Initial Consult - Date of Service January 19, 2023 - [facility] Pharmacy has been consulted to manage parenteral nutrition orders and order appropriate labs. As part of the Nutrition Support Team guidelines, pharmacy will work in conjunction with dietary when determining the patients caloric needs. - Subjective The patient is a 57 year old F admitted on 01/17/23 15:20 for ENCEPHALOPATHY. Patient is to receive parenteral nutrition for inability to take PO w/ self- removal of PEG tube. - Objective Height: 5 ft 3 in Weight: 64 kg Intake & Output (Last 24Hrs): Intake & Output 01/17/23 01/18/23 01/19/23 01/20/23 06:59 06:59 06:59 06:59 Intake Total 180 / 180 2490.000 / 2490.000 110 / 110 Output Total 1200 / 1200 1300 / 1300 Balance -1020 / -1020 1190.000 / 1190.000 110 / 110 Weight 64.1 kg 64 kg 64 kg Laboratory Data (Last 24 Hrs):: 01/19/23 07:46 Sodium 137 Potassium 4.0 Chloride 106 Carbon Dioxide 24 BUN 6 Creatinine 0.49 L Glucose 123 H Calcium 9.3 Magnesium 1.8 Nutrition Assessment:: Please refer to the Notes section of the EMR for the most recent ladler note. - Assessment * JR is a 57 year old female w/ complicated PMH w/ recent/complicated hospitalization resulting in PEG placement * Patient with encephalopathy and impaired swallowing * Admitted to [facility] from [facility] after pulling out PEG tube * PPN today with plan for PICC line (plan to advance to TPN tomorrow via PEG tube) * Electrolytes WNL * Macronutrient recs provided by dietary, appreciated * IV fluids to be discontinued at time of PPN initiation - Plan For day 1 of PN administration, the following will be ordered: Macronutrients Amino acids 64 grams/day Dextrose 75 grams/day Lipids 50 grams/day Micronutrients Combined electrolytes 20 mL - contains 35 mEq Na, 20 meq K, 4.5 mEq Ca, 5 mEq Mg, 35 mEq Cl, 29.5 mEq acetate per 20 mL Sodium phosphate MMol Sodium chloride 60 mEq Sodium acetate mEq Potassium acetate 40 mEq Magnesium sulfate 4.06 mEq Multivitamins 10 mL Trace Elements 10 mL Total volume 1585 mL to be infused over 24 hrs will provide 1010 kcal/day Final osmolarity 882 mOsm/L (maximum for PPN is 900 mOsm/L) Labs to be ordered per PN order protocol Pharmacy will follow and adjust parenteral nutrition orders on a daily basis. Thank you.
[2023-01-19 13:34] LABS: Bilirubin,Total 0.5 mg/dl (0.2-1.0)
[2023-01-19 14:50] LABS: Hematocrit (blood only) 32.1 % (37.0-47.0); Hemoglobin 10.7 g/dl (12.0-16.0); Mean Corpuscular Hemoglobin 29.8 pg (25.0-34.0); Mean Corpuscular Hgb Conc 33.3 g/dL (32.0-36.0); Mean Corpuscular Volume 89.4 fL (80.0-100.0); Mean Platelet Volume 10.2 fL (9.4-12.4); Platelet Count 172 K/uL (130-400); RDW Coefficient of Variation 14.1 % (11.5-14.5); RDW Standard Deviation 45.5 fL (36.4-46.3); Red Blood Count 3.59 M/uL (4.20-5.40); White Blood Count 4.76 K/ul (4.8-10.8)
[2023-01-19] MEDS ORDERED: PERIPHERAL TPN IV SCH (16:00)
[2023-01-19] MEDS ORDERED: [UNRECOGNIZED DRUG - OTHER] IV SCH (16:00)
[2023-01-19] MEDS ORDERED: CLINOLIPID 20% IV FAT EMULSION 250 ML IV SCH (16:00)
[2023-01-19] MEDS: ENOXAPARIN INJ 40 MG/0.4 ML SYR SQ SCH (18:07)
--- NOTE | 2023-01-19 18:41 | Hospitalist Progress Note ---
Date of Service January 19, 2023 Assessment & Plan (1) Encephalopathy: Plan: Patient is a 57-year-old female with PMH HTN, hyperlipidemia, paranoid schizophrenia, hyponatremia secondary to psychogenic polydipsia presented to ER from [facility] secondary to pulling her PEG tube. Admission at [facility] [place] 12/14/22-01/09/2023 for encephalopathy, severe hyponatremia. Had long-term EEG that initially showed nonconvulsive status epilepticus. Last long-term EEG on 12/19/2022 recorded no seizures. Continued with encephalopathy throughout hospital course. It was thought that patient's encephalopathy was likely multifactorial secondary to hypoactive delirium, thymic injury and possible infection. Neurology had reported unclear prognosis. Patient continues to be encephalopathic One-to-one observation Appreciate palliative care input Plan to discharge to rehab as able (2) Impaired swallowing: Plan: Due to encephalopathy patient was unable to take p.o. PEG tube placed on 01/05/2023 Patient pulled out PEG tube prior to admission GI consulted and reported PEG tube site already closed and did not feel it was safe to place another PEG tube secondary to patient's current altered mental status and likelihood of pulling out any additional PEG tube. GI had recommend TPN if patient needs ongoing nutrition. Recommends to reach back out to GI if any further needs. Speech consulted Dysphagia Trial of TPN/PPN as requested by family Sacral wound Empirically started on doxycycline Continue wound care (3) Sinus tachycardia: Plan: History sinus tachycardia during hospital admission at [facility] [place] 12/24-01/23 without noted underlying cause. Had negative CTA chest EKG consistent with sinus tachycardia Recently treated for aspiration pneumonia with Rocephin, Flagyl. Patient treated for UTI with Rocephin. 12/28/2022 urine cultures positive Pseudomonas Enterococcus. Has Villarreal cath in place (4) Compression fracture of T11 vertebra: Plan: Subacute T11 compression deformity noted on outside imaging in 12/2022 (5) Paranoid schizophrenia: Plan: History of paranoid schizophrenia Previously on Cogentin, Seroquel, sertraline Not currently on medications secondary to current encephalopathy (6) HTN (hypertension): Plan: BP stable Not currently on medications Monitor BP (7) HLD (hyperlipidemia): Plan: Not on medication DVT Prophylaxis Lovenox SQ Code Status DNR/DNI Admission and Anticipated Discharge Date Admission Date: January 17, 2023 Subjective Patient is seen and examined at bedside Unable to obtain any history due to cognitive status Discussed with palliative care and patient's sister at bedside No distress on exam Sitter at bedside Review of Systems Review of Systems: All systems reviewed & are unremarkable except as noted in Subjective Physical Exam Physical Exam: Physical Exam: Vitals signs as noted above General Appearance:Moderately built and nourished, no apparent distress Head: normocephalic, Atraumatic Eyes: normal inspection, EOMI Neck: supple, Trachea midline Respiratory/Chest: Normal breath sounds, CTA, No accessory muscle use Cardiovascular: S1, S2, No murmur Abdomen/GI:Soft, Non tender, Bowel sounds present Extremities/Musculoskeletal:normal inspection, no edema Neurologic/Psych:Confused, grossly no focal neurological deficits Skin: normal color, warm Results & Data Results & Data Vital Signs (Past 12 Hours) Vital Signs Temp Pulse Pulse Resp BP BP Pulse Ox 01/19/23 18:04 36.4 C L 110 H 18 135/90 94 01/19/23 17:16 109 H 20 143/89 H 96 01/19/23 17:09 111 H 01/19/23 07:38 36.4 C L 99 H 18 121/79 96 01/19/23 07:24 103 H O2 Del Method 01/19/23 18:04 Room Air 01/19/23 17:16 Room Air 01/19/23 17:09 01/19/23 07:38 Room Air 01/19/23 07:24 Laboratory Results Short CBC 01/19/23 01/19/23 01/19/23 Range/Units 07:46 12:36 14:16 WBC 4.94 Cancelled 4.76 L (4.8-10.8) K/ul Hgb 11.2 L Cancelled 10.7 L (12.0-16.0) g/dl Hct 33.2 L Cancelled 32.1 L (37.0-47.0) % Plt Count 172 Cancelled 172 (130-400) K/uL BMP 01/19/23 07:46 Sodium 137 Potassium 4.0 Chloride 106 Carbon Dioxide 24 BUN 6 Creatinine 0.49 L Glucose 123 H Calcium 9.3 Liver Function 01/19/23 Range/Units 12:36 Total Bilirubin 0.5 (0.2-1.0) mg/dl AST 37 (13-39) U/L Alkaline Phosphatase 103 (34-104) U/L
[2023-01-19] MEDS: DOXYCYCLINE HYCLATE 100 MG in DEXTROSE 5% 100 ML IV SCH (20:44)
[2023-01-19] MEDS ORDERED: MAGNESIUM SULFATE / D5W 1 GM/100 ML BAG IV ONE (21:30)
[2023-01-19] MEDS ORDERED: STOP CLINOLIPID SCH (22:00)
[2023-01-20] MEDS: DOXYCYCLINE HYCLATE 100 MG in DEXTROSE 5% 100 ML IV SCH ×2 (07:38→20:10)
[2023-01-20 09:19] LABS: BUN Creatinine Ratio 45.2 (10-20); Calcium 9.3 mg/dl (8.6-10.3); Creatinine Clr Calc Pharmacy 129.3 ml/min; Est GFR (Non-African American) 112.2 ml/min; Magnesium 1.9 mg/dl (1.7-2.4); Phosphorus 2.9 mg/dl (2.5-4.9)
[2023-01-20] MEDS: METOPROLOL TARTRATE 1 MG/ML VIAL IV SCH ×3 (10:39→22:29)
[2023-01-20] MEDS: levETIRAcetam 1,000 MG in 0.9 % SODIUM CHLORIDE 100 ML IV SCH ×2 (10:39→22:27)
[2023-01-20] MEDS ORDERED: METOPROLOL TARTRATE 1 MG/ML VIAL IV SCH (12:00)
[2023-01-20] MEDS ORDERED: [UNRECOGNIZED DRUG - OTHER] IV SCH (16:00)
[2023-01-20] MEDS ORDERED: CLINOLIPID 20% IV FAT EMULSION 250 ML IV SCH (16:00)
[2023-01-20] MEDS ORDERED: CENTRAL TPN IV SCH (16:00)
--- NOTE | 2023-01-20 17:03 | Hospitalist Progress Note ---
Date of Service January 20, 2023 Assessment & Plan (1) Encephalopathy: Plan: Patient is a 57-year-old female with PMH HTN, hyperlipidemia, paranoid schizophrenia, hyponatremia secondary to psychogenic polydipsia presented to ER from [facility] rehab secondary to pulling her PEG tube. Admission at [facility] 12/14/22-01/09/2023 for encephalopathy, severe hyponatremia. Had long-term EEG that initially showed nonconvulsive status epilepticus. Last long-term EEG on 12/19/2022 recorded no seizures. Continued with encephalopathy throughout hospital course. It was thought that patient's encephalopathy was likely multifactorial secondary to hypoactive delirium, thymic injury and possible infection. Neurology had reported unclear prognosis. Patient continues to be encephalopathic One-to-one observation Appreciate palliative care input Plan to discharge to rehab as able NSVT Currently could not administer p.o. meds Continue IV Lopressor Monitor and replace electrolytes as needed (2) Impaired swallowing: Plan: Due to encephalopathy patient was unable to take p.o. PEG tube placed on 01/05/2023 Patient pulled out PEG tube prior to admission GI consulted and reported PEG tube site already closed and did not feel it was safe to place another PEG tube secondary to patient's current altered mental status and likelihood of pulling out any additional PEG tube. GI had recommend TPN if patient needs ongoing nutrition. Recommends to reach back out to GI if any further needs. Speech consulted Dysphagia Trial of TPN/PPN as requested by family Continue swallow eval on daily basis Sacral wound Empirically started on doxycycline Continue wound care (3) Sinus tachycardia: Plan: History sinus tachycardia during hospital admission at [facility] 12/24-01/23 without noted underlying cause. Had negative CTA chest Recently treated for aspiration pneumonia with Rocephin, Flagyl. Patient treated for UTI with Rocephin. 12/28/2022 urine cultures positive Pseudomonas Enterococcus. DC mccarthy Monitor for urinary retention (4) Compression fracture of T11 vertebra: Plan: Subacute T11 compression deformity noted on outside imaging in 12/2022 (5) Paranoid schizophrenia: Plan: History of paranoid schizophrenia Previously on Cogentin, Seroquel, sertraline Not currently on medications secondary to current encephalopathy (6) HTN (hypertension): Plan: BP stable Not currently on medications Monitor BP (7) HLD (hyperlipidemia): Plan: Not on medication DVT Prophylaxis Lovenox SQ Code Status DNR/DNI Admission and Anticipated Discharge Date Admission Date: January 17, 2023 Subjective Patient is seen and examined at bedside Unable to obtain any history due to cognitive status Pleasantly confused during my encounter Sitter at bedside NSVT's on monitor Review of Systems Review of Systems: All systems reviewed & are unremarkable except as noted in Subjective Physical Exam Physical Exam: Physical Exam: Vitals signs as noted above General Appearance:Moderately built and nourished, no apparent distress Head: normocephalic, Atraumatic Eyes: normal inspection, EOMI Neck: supple, Trachea midline Respiratory/Chest: Normal breath sounds, CTA, No accessory muscle use Cardiovascular: S1, S2, No murmur Abdomen/GI:Soft, Non tender, Bowel sounds present Extremities/Musculoskeletal:normal inspection, no edema Neurologic/Psych:Confused, grossly no focal neurological deficits Skin: normal color, warm Results & Data Results & Data Vital Signs (Past 12 Hours) Vital Signs Temp Pulse Pulse Resp BP Pulse Ox O2 Del Method 01/20/23 09:43 111 H 01/20/23 07:50 Room Air 01/20/23 07:26 113 H 01/20/23 06:10 36.7 C 96 H 16 121/83 97 Room Air Laboratory Results BMP 01/20/23 08:20 Sodium 137 Potassium 4.0 Chloride 106 Carbon Dioxide 23 BUN 19 Creatinine 0.42 L Glucose 143 H Calcium 9.3
[2023-01-20] MEDS: ENOXAPARIN INJ 40 MG/0.4 ML SYR SQ SCH (17:47)
[2023-01-20] MEDS: STOP CLINOLIPID SCH (22:34)
[2023-01-21] MEDS: METOPROLOL TARTRATE 1 MG/ML VIAL IV SCH ×4 (04:46→22:16)
[2023-01-21] MEDS: levETIRAcetam 1,000 MG in 0.9 % SODIUM CHLORIDE 100 ML IV SCH ×2 (08:56→22:21)
[2023-01-21] MEDS: DOXYCYCLINE HYCLATE 100 MG in DEXTROSE 5% 100 ML IV SCH ×2 (09:03→17:42)
[2023-01-21 10:55] LABS: BUN Creatinine Ratio 55.6 (10-20); Calcium 9.2 mg/dl (8.6-10.3); Creatinine Clr Calc Pharmacy 121.3 ml/min; Est GFR (African American) 127.1 ml/min; Est GFR (Non-African American) 109.7 ml/min; Magnesium 1.9 mg/dl (1.7-2.4); Phosphorus 3.6 mg/dl (2.5-4.9); Potassium 4.7 mmol/L (3.5-5.1)
[2023-01-21] MEDS ORDERED: CLINOLIPID 20% IV FAT EMULSION 250 ML IV SCH (16:00)
[2023-01-21] MEDS ORDERED: CENTRAL TPN IV SCH (16:00)
[2023-01-21] MEDS ORDERED: [UNRECOGNIZED DRUG - OTHER] IV SCH (16:00)
--- NOTE | 2023-01-21 16:36 | Hospitalist Progress Note ---
Date of Service January 21, 2023 Assessment & Plan (1) Encephalopathy: Plan: Patient is a 57-year-old female with PMH HTN, hyperlipidemia, paranoid schizophrenia, hyponatremia secondary to psychogenic polydipsia presented to ER from [facility] rehab secondary to pulling her PEG tube. Admission at [facility] 12/14/22-01/09/2023 for encephalopathy, severe hyponatremia. Had long-term EEG that initially showed nonconvulsive status epilepticus. Last long-term EEG on 12/19/2022 recorded no seizures. Continued with encephalopathy throughout hospital course. It was thought that patient's encephalopathy was likely multifactorial secondary to hypoactive delirium, thymic injury and possible infection. Neurology had reported unclear prognosis. Patient continues to be encephalopathic One-to-one observation Appreciate palliative care input Plan to discharge to rehab as able NSVT Currently could not administer p.o. meds Continue IV Lopressor Monitor and replace electrolytes as needed Plan to transition IV Lopressor to p.o. once able to swallow pills (2) Impaired swallowing: Plan: Due to encephalopathy patient was unable to take p.o. PEG tube placed on 01/05/2023 Patient pulled out PEG tube prior to admission GI consulted and reported PEG tube site already closed and did not feel it was safe to place another PEG tube secondary to patient's current altered mental status and likelihood of pulling out any additional PEG tube. GI had recommend TPN if patient needs ongoing nutrition. Recommends to reach back out to GI if any further needs. Speech consulted Dysphagia Trial of TPN/PPN as requested by family Video swallow study tomorrow Urinary retention Failed voiding trial Continue Villarreal catheter May need urology evaluation eventually Sacral wound Empirically started on doxycycline Continue wound care (3) Sinus tachycardia: Plan: History sinus tachycardia during hospital admission at [facility] 12/24-01/23 without noted underlying cause. Had negative CTA chest Recently treated for aspiration pneumonia with Rocephin, Flagyl. Patient treated for UTI with Rocephin. 12/28/2022 urine cultures positive Pseudomonas Enterococcus. (4) Compression fracture of T11 vertebra: Plan: Subacute T11 compression deformity noted on outside imaging in 12/2022 (5) Paranoid schizophrenia: Plan: History of paranoid schizophrenia Previously on Cogentin, Seroquel, sertraline Not currently on medications secondary to current encephalopathy (6) HTN (hypertension): Plan: BP stable Not currently on medications Monitor BP (7) HLD (hyperlipidemia): Plan: Not on medication DVT Prophylaxis Lovenox SQ Code Status DNR/DNI Admission and Anticipated Discharge Date Admission Date: January 17, 2023 Subjective Patient is seen and examined at bedside Unable to obtain any history due to cognitive status failed voiding trial--Villarreal catheter replaced Sitter at bedside Tachycardic intermittently Video swallow eval tomorrow Review of Systems Review of Systems: All systems reviewed & are unremarkable except as noted in Subjective Physical Exam Physical Exam: Physical Exam: Vitals signs as noted above General Appearance:Moderately built and nourished, no apparent distress Head: normocephalic, Atraumatic Eyes: normal inspection, EOMI Neck: supple, Trachea midline Respiratory/Chest: Normal breath sounds, CTA, No accessory muscle use Cardiovascular: S1, S2, No murmur Abdomen/GI:Soft, Non tender, Bowel sounds present Extremities/Musculoskeletal:normal inspection, no edema Neurologic/Psych:Confused, grossly no focal neurological deficits Skin: normal color, warm Results & Data Results & Data Vital Signs (Past 12 Hours) Vital Signs Temp Pulse Pulse Pulse Resp BP BP 01/21/23 16:00 107 H 01/21/23 15:06 36.1 C L 94 H 18 137/86 01/21/23 11:46 36.7 C 90 18 126/88 01/21/23 07:39 80 01/21/23 07:17 36.9 C 98 H 16 123/82 01/21/23 04:46 90 117/84 Pulse Ox O2 Del Method 01/21/23 16:00 01/21/23 15:06 94 Room Air 01/21/23 11:46 97 Room Air 01/21/23 07:39 01/21/23 07:17 98 Room Air 01/21/23 04:46 Laboratory Results BMP 01/21/23 10:17 Sodium 138 Potassium 4.7 Chloride 106 Carbon Dioxide 24 BUN 25 H Creatinine 0.45 L Glucose 112 H Calcium 9.2
[2023-01-21] MEDS: ENOXAPARIN INJ 40 MG/0.4 ML SYR SQ SCH (16:47)
[2023-01-21] MEDS: STOP CLINOLIPID SCH (22:48)
[2023-01-22] MEDS: METOPROLOL TARTRATE 1 MG/ML VIAL IV SCH ×4 (04:06→23:00)
[2023-01-22 07:02] LABS: Calcium 9.1 mg/dl (8.6-10.3); Creatinine Clr Calc Pharmacy 124.7 ml/min; Est GFR (African American) 128.1 ml/min; Est GFR (Non-African American) 110.5 ml/min; Magnesium 1.8 mg/dl (1.7-2.4); Phosphorus 3.9 mg/dl (2.5-4.9); Potassium 4.6 mmol/L (3.5-5.1)
[2023-01-22] MEDS: DOXYCYCLINE HYCLATE 100 MG in DEXTROSE 5% 100 ML IV SCH ×2 (08:40→18:28)
[2023-01-22] MEDS: levETIRAcetam 1,000 MG in 0.9 % SODIUM CHLORIDE 100 ML IV SCH ×2 (09:47→20:31)
--- NOTE | 2023-01-22 15:00 | Palliative Care Progress Note ---
Date of Service January 22, 2023 Assessment & Plan (1) Palliative care by specialist: (2) Discussion about advance care planning held with family member: (3) Dislodged gastrostomy tube: (4) Impaired swallowing: Plan: appears improved, back to normal swallow today. Trial of reg diet with finger foods (5) Encephalopathy: (6) Paranoid schizophrenia: Plan Improved swallow If TPN felt to be of benefit, suggest a 60 day trial, she can return to [facility] on TPN Continue reg diet/finger foods - adv as tolerated Family has been consistent that should she have further decline they desire transition to comfort. No acute IP pall med needs at this time. I will sign off but remain available for re-engagement if needed through this admission. Thank you for allowing us to participate in the ongoing care of this patient. Please don't hesitate to call or page with any additional concerns. Dr. Hannah Wheeler DNP Director, Palliative Care Admission and Anticipated Discharge Date Admission Date: January 17, 2023 Subjective Swallow study today reveals a normal swallow - ST began regular diet with finger foods. Remains on TPN Hopeful if she can take PO safely, can return to rehab trial on regular diet Still has a sitter but overall seems calmer Review of Systems Review of Systems: Unobtainable due to mental health condition Physical Exam Physical Exam: Resting/NAD no resp distress No JVD Baseline confusion/unable to follow commands Results & Data Vital Signs (Past 12 Hours) Vital Signs Temp Pulse Pulse Resp BP BP Pulse Ox 01/22/23 11:53 36.4 C L 91 H 16 128/86 98 01/22/23 08:00 01/22/23 10:12 96 H 01/22/23 04:06 81 116/62 01/22/23 03:46 36.8 C 81 18 116/62 95 O2 Del Method 01/22/23 11:53 Room Air 01/22/23 08:00 Room Air 01/22/23 10:12 01/22/23 04:06 01/22/23 03:46 Room Air PG Care Time/CCT Total # of Minutes Spent Total Time Spent: 40 Total Time Spent with Patient: Total time spent is greater than 50% in coordination of care (as documented) at patient's floor/unit and/or counseling patient: Coding [place] [address] SUB INP/OBS CARE 3/50MIN Patient Type Established History Detailed Exam Detailed Medical Decision Making High Complexity Diagnoses Palliative care by specialist Z51.5 Discussion about advance care planning held with family member Z71.0 Dislodged gastrostomy tube T85.528A Impaired swallowing R13.10 Encephalopathy G93.40 Paranoid schizophrenia F20.0
--- NOTE | 2023-01-22 15:44 | Hospitalist Progress Note ---
Date of Service January 22, 2023 Assessment & Plan (1) Encephalopathy: Plan: Patient is a 57-year-old female with PMH HTN, hyperlipidemia, paranoid schizophrenia, hyponatremia secondary to psychogenic polydipsia presented to ER from [facility] rehab secondary to pulling her PEG tube. Admission at [facility] [place] 12/14/22-01/09/2023 for encephalopathy, severe hyponatremia. Had long-term EEG that initially showed nonconvulsive status epilepticus. Last long-term EEG on 12/19/2022 recorded no seizures. Continued with encephalopathy throughout hospital course. It was thought that patient's encephalopathy was likely multifactorial secondary to hypoactive delirium, thymic injury and possible infection. Neurology had reported unclear prognosis. Patient continues to be encephalopathic One-to-one observation Appreciate palliative care input Plan to discharge to rehab as able NSVT Currently could not administer p.o. meds Continue IV Lopressor Monitor and replace electrolytes as needed Plan to transition IV Lopressor to p.o. once able to swallow pills Continue current management for now (2) Impaired swallowing: Plan: Due to encephalopathy patient was unable to take p.o. PEG tube placed on 01/05/2023 Patient pulled out PEG tube prior to admission GI consulted and reported PEG tube site already closed and did not feel it was safe to place another PEG tube secondary to patient's current altered mental status and likelihood of pulling out any additional PEG tube. GI had recommend TPN if patient needs ongoing nutrition. Recommends to reach back out to GI if any further needs. Speech consulted Dysphagia On TPN/PPN--plan to discontinue if patient has no issues with swallowing only. Had Video swallow study today Speech Therapy:Recommends regular diet, finger foods. Needs direct supervision with all feeds. Aspiration precautions Urinary retention Failed voiding trial Continue Villarreal catheter May need urology evaluation eventually as outpatient Sacral wound Empirically started on doxycycline Continue wound care (3) Sinus tachycardia: Plan: History sinus tachycardia during hospital admission at [facility] [place] 12/24-01/23 without noted underlying cause. Had negative CTA chest Recently treated for aspiration pneumonia with Rocephin, Flagyl. Patient treated for UTI with Rocephin. 12/28/2022 urine cultures positive Pseudomonas Enterococcus. (4) Compression fracture of T11 vertebra: Plan: Subacute T11 compression deformity noted on outside imaging in 12/2022 (5) Paranoid schizophrenia: Plan: History of paranoid schizophrenia Previously on Cogentin, Seroquel, sertraline Not currently on medications secondary to current encephalopathy (6) HTN (hypertension): Plan: BP stable Not currently on medications Monitor BP (7) HLD (hyperlipidemia): Plan: Not on medication DVT Prophylaxis Lovenox SQ Code Status DNR/DNI Admission and Anticipated Discharge Date Admission Date: January 17, 2023 Subjective Patient is seen and examined at bedside Unable to obtain any history due to cognitive status Had swallow eval study today No distress on exam Sitter at bedside Review of Systems Review of Systems: Other Physical Exam Physical Exam: Physical Exam: Vitals signs as noted above General Appearance:Moderately built and nourished, no apparent distress Head: normocephalic, Atraumatic Eyes: normal inspection, EOMI Neck: supple, Trachea midline Respiratory/Chest: Normal breath sounds, CTA, No accessory muscle use Cardiovascular: S1, S2, Tachycardia, No murmur Abdomen/GI:Soft, Non tender, Bowel sounds present Extremities/Musculoskeletal:normal inspection, no edema Neurologic/Psych:Confused, grossly no focal neurological deficits Skin: normal color, warm Results & Data Results & Data Vital Signs (Past 12 Hours) Vital Signs Temp Pulse Pulse Resp BP BP Pulse Ox 01/22/23 15:08 36.7 C 103 H 18 129/83 93 01/22/23 11:53 36.4 C L 91 H 16 128/86 98 01/22/23 08:00 01/22/23 10:12 96 H 01/22/23 04:06 81 116/62 01/22/23 03:46 36.8 C 81 18 116/62 95 O2 Del Method 01/22/23 15:08 Room Air 01/22/23 11:53 Room Air 01/22/23 08:00 Room Air 01/22/23 10:12 01/22/23 04:06 01/22/23 03:46 Room Air Laboratory Results BMP 01/22/23 05:47 Sodium 138 Potassium 4.6 Chloride 108 H Carbon Dioxide 24 BUN 22 Creatinine 0.44 L Glucose 108 H Calcium 9.1
[2023-01-22] MEDS ORDERED: [UNRECOGNIZED DRUG - OTHER] IV SCH (16:00)
[2023-01-22] MEDS ORDERED: CENTRAL TPN IV SCH (16:00)
[2023-01-22] MEDS ORDERED: CLINOLIPID 20% IV FAT EMULSION 250 ML IV SCH (16:00)
[2023-01-22] MEDS: ENOXAPARIN INJ 40 MG/0.4 ML SYR SQ SCH (17:41)
[2023-01-22] MEDS: STOP CLINOLIPID SCH (22:50)
[2023-01-23] MEDS: METOPROLOL TARTRATE 1 MG/ML VIAL IV SCH (03:34)
[2023-01-23] MEDS: DOXYCYCLINE HYCLATE 100 MG in DEXTROSE 5% 100 ML IV SCH (06:34)
[2023-01-23] MEDS: levETIRAcetam 1,000 MG in 0.9 % SODIUM CHLORIDE 100 ML IV SCH (08:36)
--- NOTE | 2023-01-23 08:58 | Fluoroscopy Report ---
MODIFIED BARIUM SWALLOW CLINICAL HISTORY: assess for aspiration COMPARISON STUDY: None. FLUOROSCOPY TIME: 2.8 minutes. Ka, r: 156.9 mGy. TECHNIQUE: A modified barium swallow was performed in conjunction with Speech Pathology. The patient ingested varying consistencies of barium containing material. Video fluoroscopy was performed. FINDINGS: There was no aspiration with swallows of thin liquids, pudding consistencies or crackers wi th paste. Epiglottic inversion was normal. Laryngeal elevation was normal. IMPRESSION: 1. No tracheal aspiration. 2. Full recommendations by Speech pathology to follow. ACT 112: Negative or not required by law. Electronically signed by: Daniele Santiago M.D. 01/23/2023 8:57 AM
[2023-01-23] MEDS: METOPROLOL TARTRATE 25 MG TAB PO SCH ×2 (10:22→21:46)
[2023-01-23] MEDS ORDERED: CENTRAL TPN IV SCH (16:00)
[2023-01-23] MEDS ORDERED: CLINOLIPID 20% IV FAT EMULSION 250 ML IV SCH (16:00)
[2023-01-23] MEDS ORDERED: [UNRECOGNIZED DRUG - OTHER] IV SCH (16:00)
--- NOTE | 2023-01-23 17:40 | Hospitalist Progress Note ---
Date of Service January 23, 2023 Assessment & Plan (1) Encephalopathy: Plan: Patient is a 57-year-old female with PMH HTN, hyperlipidemia, paranoid schizophrenia, hyponatremia secondary to psychogenic polydipsia presented to ER from [facility] rehab secondary to pulling her PEG tube. [place] [facility]09[place] for encephalopathy, severe hyponatremia. Had long-term EEG that initially showed nonconvulsive status epilepticus. Last long-term EEG on 12/19/2022 recorded no seizures. Continued with encephalopathy throughout hospital course. It was thought that patient's encephalopathy was likely multifactorial secondary to hypoactive delirium, thymic injury and possible infection. Neurology had reported unclear prognosis. Patient continues to be encephalopathic One-to-one observation Appreciate palliative care input Plan to discharge to rehab as able NSVT Currently could not administer p.o. meds Continue IV Lopressor>>> transition to metoprolol 25 mg twice daily Monitor and replace electrolytes as needed Adjust metoprolol dose as needed (2) Impaired swallowing: Plan: Due to encephalopathy patient was unable to take p.o. PEG tube placed on 01/05/2023 Patient pulled out PEG tube prior to admission GI consulted and reported PEG tube site already closed and did not feel it was safe to place another PEG tube secondary to patient's current altered mental status and likelihood of pulling out any additional PEG tube. GI had recommend TPN if patient needs ongoing nutrition. Recommends to reach back out to GI if any further needs. Speech consulted Dysphagia --Video barium swallow:No tracheal aspiration. On TPN/PPN--discontinued as patient tolerating oral intake now Speech Therapy:Recommends regular diet, finger foods. Needs direct supervision with all feeds. Aspiration precautions Urinary retention Failed voiding trial Continue Villarreal catheter May need urology evaluation eventually as outpatient Sacral wound Empirically on doxycycline--continue Continue wound care (3) Sinus tachycardia: Plan: History sinus tachycardia during hospital [place] [facility] [place] without noted underlying cause. Had negative CTA chest Recently treated for aspiration pneumonia with Rocephin, Flagyl. Patient treated for UTI with Rocephin. 12/28/2022 urine cultures positive Pseudomonas Enterococcus. (4) Compression fracture of T11 vertebra: Plan: Subacute T11 compression deformity noted on outside imaging in 12/2022 (5) Paranoid schizophrenia: Plan: History of paranoid schizophrenia Previously on Cogentin, Seroquel, sertraline Not currently on medications secondary to current encephalopathy (6) HTN (hypertension): Plan: BP stable Continue metoprolol (7) HLD (hyperlipidemia): Plan: Not on medication DVT Prophylaxis Lovenox SQ Code Status DNR/DNI Disposition Rehab when accepted Admission and Anticipated Discharge Date Admission Date: January 17, 2023 Subjective Patient is seen and examined at bedside Unable to obtain any history due to cognitive status Tolerated diet, and taking pills with no issues Plan to discontinue TPN today Plan to discharge to rehab when accepted Sitter at bedside No distress on exam Review of Systems Review of Systems: Unobtainable due to cognitive status Physical Exam Physical Exam: Physical Exam: Vitals signs as noted above General Appearance:Moderately built and nourished, no apparent distress Head: normocephalic, Atraumatic Eyes: normal inspection, EOMI Neck: supple, Trachea midline Respiratory/Chest: Normal breath sounds, CTA, No accessory muscle use Cardiovascular: S1, S2, Tachycardia, No murmur Abdomen/GI:Soft, Non tender, Bowel sounds present Extremities/Musculoskeletal:normal inspection, no edema Neurologic/Psych:Confused, grossly no focal neurological deficits Skin: normal color, warm Results & Data Results & Data Vital Signs (Past 12 Hours) Vital Signs Temp Pulse Resp BP Pulse Ox O2 Del Method 01/23/23 15:17 36.7 C 105 H 20 133/85 97 Room Air 01/23/23 11:16 36.8 C 98 H 18 138/91 98 Room Air 01/23/23 07:11 36.3 C L 94 H 17 129/85 97 Room Air
[2023-01-23] MEDS: ENOXAPARIN INJ 40 MG/0.4 ML SYR SQ SCH (18:01)
[2023-01-23] MEDS: DOXYCYCLINE HYCLATE 100 MG CAP PO SCH (21:46)
[2023-01-23] MEDS: levETIRAcetam 500 MG TAB PO SCH (21:46)
[2023-01-23] MEDS ORDERED: LORazepam 0.5 MG TAB PO STA (23:02)
[2023-01-24 06:38] LABS: Hematocrit (blood only) 31.9 % (37.0-47.0); Hemoglobin 10.4 g/dl (12.0-16.0); Mean Corpuscular Hemoglobin 29.5 pg (25.0-34.0); Mean Corpuscular Hgb Conc 32.6 g/dL (32.0-36.0); Mean Corpuscular Volume 90.6 fL (80.0-100.0); Mean Platelet Volume 10.6 fL (9.4-12.4); Platelet Count 192 K/uL (130-400); RDW Coefficient of Variation 14.3 % (11.5-14.5); RDW Standard Deviation 47.7 fL (36.4-46.3); Red Blood Count 3.52 M/uL (4.20-5.40); White Blood Count 5.54 K/ul (4.8-10.8)
[2023-01-24 06:54] LABS: BUN Creatinine Ratio 40.5 (10-20); Calcium 9.1 mg/dl (8.6-10.3); Creatinine Clr Calc Pharmacy 132.4 ml/min; Est GFR (Non-African American) 112.2 ml/min; Potassium 3.8 mmol/L (3.5-5.1)
[2023-01-24] MEDS: levETIRAcetam 500 MG TAB PO SCH ×2 (09:39→21:35)
[2023-01-24] MEDS: DOXYCYCLINE HYCLATE 100 MG CAP PO SCH ×2 (09:39→21:35)
[2023-01-24] MEDS: METOPROLOL TARTRATE 25 MG TAB PO SCH ×2 (09:40→21:35)
[2023-01-24] MEDS ORDERED: Nursing to Pharmacy Communication SCH (12:15)
[2023-01-24] MEDS ORDERED: METOPROLOL TARTRATE 25 MG TAB PO ONE (12:45)
--- NOTE | 2023-01-24 16:40 | Hospitalist Progress Note ---
Date of Service January 24, 2023 Assessment & Plan (1) Encephalopathy: Plan: Patient is a 57-year-old female with PMH HTN, hyperlipidemia, paranoid schizophrenia, hyponatremia secondary to psychogenic polydipsia presented to ER from [facility] rehab secondary to pulling her PEG tube. Admission at [facility] [place] 12/14/22-01/09/2023 for encephalopathy, severe hyponatremia. Had long-term EEG that initially showed nonconvulsive status epilepticus. Last long-term EEG on 12/19/2022 recorded no seizures. Continued with encephalopathy throughout hospital course. It was thought that patient's encephalopathy was likely multifactorial secondary to hypoactive delirium, thymic injury and possible infection. Neurology had reported unclear prognosis. Patient continues to be encephalopathic One-to-one observation Appreciate palliative care input Plan to discharge to rehab as able NSVT Currently could not administer p.o. meds Continue IV Lopressor>>> transition to metoprolol 12.5 mg twice daily Monitor and replace electrolytes as needed Adjust metoprolol dose as needed (2) Impaired swallowing: Plan: Due to encephalopathy patient was unable to take p.o. PEG tube placed on 01/05/2023 Patient pulled out PEG tube prior to admission GI consulted and reported PEG tube site already closed and did not feel it was safe to place another PEG tube secondary to patient's current altered mental status and likelihood of pulling out any additional PEG tube. GI had recommend TPN if patient needs ongoing nutrition. Recommends to reach back out to GI if any further needs. Speech consulted Dysphagia --Video barium swallow:No tracheal aspiration. On TPN/PPN--discontinued as patient tolerating oral intake now Speech Therapy:Recommends regular diet, finger foods. Needs direct supervision with all feeds. Aspiration precautions Tolerating current diet with no issues Urinary retention Failed voiding trial Continue Villarreal catheter May need urology evaluation eventually as outpatient Sacral wound Empirically on doxycycline--plan to continue 5-day course Continue wound care (3) Sinus tachycardia: Plan: History sinus tachycardia during hospital admission at [facility] [place] 12/24-01/23 without noted underlying cause. Had negative CTA chest Recently treated for aspiration pneumonia with Rocephin, Flagyl. Patient treated for UTI with Rocephin. 12/28/2022 urine cultures positive Pseudomonas Enterococcus. (4) Compression fracture of T11 vertebra: Plan: Subacute T11 compression deformity noted on outside imaging in 12/2022 (5) Paranoid schizophrenia: Plan: History of paranoid schizophrenia Previously on Cogentin, Seroquel, sertraline Not currently on medications secondary to current encephalopathy (6) HTN (hypertension): Plan: BP stable Continue metoprolol (7) HLD (hyperlipidemia): Plan: Not on medication DVT Prophylaxis Lovenox SQ Code Status DNR/DNI Disposition Rehab when accepted Admission and Anticipated Discharge Date Admission Date: January 17, 2023 Subjective Patient is seen and examined at bedside Unable to obtain any history due to cognitive status Received Ativan overnight for agitation Sitter at bedside Blood pressure relatively low today Tolerating diet Review of Systems Review of Systems: Unobtainable due to cognitive status Physical Exam Physical Exam: Physical Exam: Vitals signs as noted above General Appearance:Moderately built and nourished, no apparent distress Head: normocephalic, Atraumatic Eyes: normal inspection, EOMI Neck: supple, Trachea midline Respiratory/Chest: Normal breath sounds, CTA, No accessory muscle use Cardiovascular: S1, S2, Tachycardia, No murmur Abdomen/GI:Soft, Non tender, Bowel sounds present Extremities/Musculoskeletal:normal inspection, no edema Neurologic/Psych:Confused, grossly no focal neurological deficits Skin: normal color, warm Results & Data Results & Data Vital Signs (Past 12 Hours) Vital Signs Temp Pulse Resp BP Pulse Ox O2 Del Method 01/24/23 12:03 36.7 C 100 H 20 103/69 98 Room Air 01/24/23 09:01 36.7 C 84 18 93/59 L 98 Room Air Laboratory Results Short CBC 01/24/23 Range/Units 05:54 WBC 5.54 (4.8-10.8) K/ul Hgb 10.4 L (12.0-16.0) g/dl Hct 31.9 L (37.0-47.0) % Plt Count 192 (130-400) K/uL BMP 01/24/23 05:54 Sodium 138 Potassium 3.8 Chloride 107 Carbon Dioxide 23 BUN 17 Creatinine 0.42 L Glucose 124 H Calcium 9.1
[2023-01-24] MEDS: ENOXAPARIN INJ 40 MG/0.4 ML SYR SQ SCH (18:09)
[2023-01-25 06:44] LABS: BUN Creatinine Ratio 47.9 (10-20); Calcium 9.3 mg/dl (8.6-10.3); Creatinine Clr Calc Pharmacy 114.9 ml/min; Est GFR (African American) 124.4 ml/min; Est GFR (Non-African American) 107.4 ml/min
[2023-01-25] MEDS: DOXYCYCLINE HYCLATE 100 MG CAP PO SCH ×2 (08:07→20:48)
[2023-01-25] MEDS: levETIRAcetam 500 MG TAB PO SCH ×2 (08:07→20:48)
[2023-01-25] MEDS: METOPROLOL TARTRATE 25 MG TAB PO SCH ×2 (08:08→20:48)
[2023-01-25] MEDS ORDERED: DOCUSATE SODIUM/SENNA 50/8.6MG TAB PO PRN (13:32)
[2023-01-25] MEDS ORDERED: POLYETHYLENE (MIRALAX) 17 GM PACK PO PRN (13:32)
--- NOTE | 2023-01-25 14:10 | Hospitalist Progress Note ---
Date of Service January 25, 2023 Assessment & Plan (1) Encephalopathy: Plan: Patient is a 57-year-old female with PMH HTN, hyperlipidemia, paranoid schizophrenia, hyponatremia secondary to psychogenic polydipsia presented to ER from [facility] rehab secondary to pulling her PEG tube. Admission at [facility] [place] 12/14/22-01/09/2023 for encephalopathy, severe hyponatremia. Had long-term EEG that initially showed nonconvulsive status epilepticus. Last long-term EEG on 12/19/2022 recorded no seizures. Continued with encephalopathy throughout hospital course. It was thought that patient's encephalopathy was likely multifactorial secondary to hypoactive delirium, thymic injury and possible infection. Neurology had reported unclear prognosis. Patient continues to be encephalopathic One-to-one observation Appreciate palliative care input Plan to discharge to rehab as able Transfer out of PCU NSVT Currently could not administer p.o. meds Continue IV Lopressor>>> transition to metoprolol 12.5 mg twice daily Monitor and replace electrolytes as needed Adjust metoprolol dose as needed No recurrence of issues (2) Impaired swallowing: Plan: Due to encephalopathy patient was unable to take p.o. PEG tube placed on 01/05/2023 Patient pulled out PEG tube prior to admission GI consulted and reported PEG tube site already closed and did not feel it was safe to place another PEG tube secondary to patient's current altered mental status and likelihood of pulling out any additional PEG tube. GI had recommend TPN if patient needs ongoing nutrition. Recommends to reach back out to GI if any further needs. Speech consulted Dysphagia --Video barium swallow:No tracheal aspiration. On TPN/PPN--discontinued as patient tolerating oral intake now Speech Therapy:Recommends regular diet, finger foods. Needs direct supervision with all feeds. Aspiration precautions Tolerating current diet with no issues Urinary retention Failed voiding trial Continue Villarreal catheter May need urology evaluation eventually as outpatient Sacral wound Empirically on doxycycline--plan to continue 5-day course Continue wound care (3) Sinus tachycardia: Plan: History sinus tachycardia during hospital admission at [facility] 12/24-01/23 without noted underlying cause. Had negative CTA chest Recently treated for aspiration pneumonia with Rocephin, Flagyl. Patient treated for UTI with Rocephin. 12/28/2022 urine cultures positive Pseudomonas Enterococcus. (4) Compression fracture of T11 vertebra: Plan: Subacute T11 compression deformity noted on outside imaging in 12/2022 (5) Paranoid schizophrenia: Plan: History of paranoid schizophrenia Previously on Cogentin, Seroquel, sertraline Not currently on medications secondary to current encephalopathy (6) HTN (hypertension): Plan: BP stable Continue metoprolol (7) HLD (hyperlipidemia): Plan: Not on medication DVT Prophylaxis Lovenox SQ Code Status DNR/DNI Disposition Rehab when accepted Admission and Anticipated Discharge Date Admission Date: January 17, 2023 Subjective Patient is seen and examined at bedside Unable to obtain any history due to cognitive status No distress on exam Heart rate controlled, no recurrence of NSVT Sitter at bedside Plan to transfer to [facility] Review of Systems Review of Systems: Unobtainable due to cognitive status Physical Exam Physical Exam: Physical Exam: Vitals signs as noted above General Appearance:Moderately built and nourished, no apparent distress Head: normocephalic, Atraumatic Eyes: normal inspection, EOMI Neck: supple, Trachea midline Respiratory/Chest: Normal breath sounds, CTA, No accessory muscle use Cardiovascular: S1, S2, No murmur Abdomen/GI:Soft, Non tender, Bowel sounds present Extremities/Musculoskeletal:normal inspection, no edema Neurologic/Psych:Confused, grossly no focal neurological deficits Skin: normal color, warm Results & Data Results & Data Vital Signs (Past 12 Hours) Vital Signs Temp Pulse Pulse Resp BP Pulse Ox O2 Del Method 01/25/23 13:33 37.1 C 91 H 17 125/78 97 Room Air 01/25/23 10:48 36.8 C 88 19 122/80 98 Room Air 01/25/23 07:03 36.5 C 88 19 124/77 98 Room Air 01/25/23 04:10 96 H Laboratory Results [facility] 01/25/23 05:49 Sodium 142 Potassium 4.0 Chloride 110 H Carbon Dioxide 25 BUN 23 Creatinine 0.48 L Glucose 103 H Calcium 9.3
[2023-01-25] MEDS: ENOXAPARIN INJ 40 MG/0.4 ML SYR SQ SCH (18:09)
[2023-01-26 07:54] LABS: Hematocrit (blood only) 34.4 % (37.0-47.0); Hemoglobin 11.7 g/dl (12.0-16.0); Mean Corpuscular Hemoglobin 29.7 pg (25.0-34.0); Mean Corpuscular Volume 87.3 fL (80.0-100.0); Mean Platelet Volume 10.6 fL (9.4-12.4); Platelet Count 220 K/uL (130-400); RDW Coefficient of Variation 13.9 % (11.5-14.5); RDW Standard Deviation 44.1 fL (36.4-46.3); Red Blood Count 3.94 M/uL (4.20-5.40); White Blood Count 5.82 K/ul (4.8-10.8)
[2023-01-26] MEDS: METOPROLOL TARTRATE 25 MG TAB PO SCH ×2 (07:56→20:51)
[2023-01-26] MEDS: DOXYCYCLINE HYCLATE 100 MG CAP PO SCH ×2 (07:56→20:51)
[2023-01-26] MEDS: levETIRAcetam 500 MG TAB PO SCH ×2 (07:56→20:51)
[2023-01-26] MEDS: PANTOprazole 40 MG TAB PO SCH (07:57)
[2023-01-26 08:15] LABS: BUN Creatinine Ratio 22.9 (10-20); Calcium 9.6 mg/dl (8.6-10.3); Creatinine Clr Calc Pharmacy 114.9 ml/min; Est GFR (African American) 124.4 ml/min; Est GFR (Non-African American) 107.4 ml/min
--- NOTE | 2023-01-26 13:19 | Hospitalist Progress Note ---
Date of Service January 26, 2023 Assessment & Plan (1) Encephalopathy: Plan: Per Dr. Richter's note w/ addendum Patient is a 57-year-old female with PMH HTN, hyperlipidemia, paranoid schizophrenia, hyponatremia secondary to psychogenic polydipsia presented to ER from [facility] rehab secondary to pulling her PEG tube. [place] [facility] [place] for encephalopathy, severe hyponatremia. Had long-term EEG that initially showed nonconvulsive status epilepticus. Last long-term EEG on 12/19/2022 recorded no seizures. Continued with encephalopathy throughout hospital course. It was thought that patient's encephalopathy was likely multifactorial secondary to hypoactive delirium, thalamic injury and possible infection. Neurology had reported unclear prognosis. Patient continues to be encephalopathic One-to-one observation Appreciate palliative care input Plan to discharge to rehab as able NSVT could not administer p.o. meds initially Continue IV Lopressor>>> transition to metoprolol 12.5 mg twice daily Monitor and replace electrolytes as needed Adjust metoprolol dose as needed No recurrence of issues (2) Impaired swallowing: Plan: Due to encephalopathy patient was unable to take p.o. PEG tube placed on 01/05/2023 Patient pulled out PEG tube prior to admission GI consulted and reported PEG tube site already closed and did not feel it was safe to place another PEG tube secondary to patient's current altered mental status and likelihood of pulling out any additional PEG tube. GI had recommend TPN if patient needs ongoing nutrition. Recommends to reach back out to GI if any further needs. Speech consulted Dysphagia --Video barium swallow:No tracheal aspiration. On TPN/PPN--discontinued as patient tolerating oral intake now Speech Therapy:Recommends regular diet, finger foods. Needs direct supervision with all feeds. Aspiration precautions Tolerating current diet with no issues Urinary retention Failed voiding trial Continue Villarreal catheter May need urology evaluation eventually as outpatient Sacral wound Empirically on doxycycline--plan to continue 5-day course Continue wound care (3) Sinus tachycardia: Plan: History sinus tachycardia during hospital [place] [facility] [place] without noted underlying cause. Had negative CTA chest Recently treated for aspiration pneumonia with Rocephin, Flagyl. Patient treated for UTI with Rocephin. 12/28/2022 urine cultures positive Pseudomonas Enterococcus. (4) Compression fracture of T11 vertebra: Plan: Subacute T11 compression deformity noted on outside imaging in 12/2022 (5) Paranoid schizophrenia: Plan: History of paranoid schizophrenia Previously on Cogentin, Seroquel, sertraline Not currently on medications secondary to current encephalopathy (6) HTN (hypertension): Plan: BP stable Continue metoprolol (7) HLD (hyperlipidemia): Plan: Not on medication DVT Prophylaxis Lovenox SQ Code Status DNR/DNI Disposition Rehab when accepted Admission and Anticipated Discharge Date Admission Date: January 17, 2023 Subjective Patient is seen and examined at bedside Sitting up in bed, in NAD, does not answer appropriately Unable to obtain any history due to cognitive status No distress on exam Heart rate controlled, no recurrence of NSVT Sitter at bedside Discussed w/ RN/ sitter at the bedside Review of Systems Review of Systems: All systems reviewed & are unremarkable except as noted in Subjective Physical Exam Physical Exam: General Appearance:Moderately built and nourished, no apparent distress Head: normocephalic, Atraumatic Eyes: normal inspection, EOMI Neck: supple Respiratory/Chest: Normal breath sounds, CTA, No accessory muscle use Cardiovascular: S1, S2, No murmur Abdomen/GI: Soft, Non tender, Bowel sounds present Extremities/Musculoskeletal:normal inspection, no edema Neurologic/Psych: Confused, not answering appropriately, moves extremities Skin: normal color, warm Results & Data Results & Data Vital Signs (Past 12 Hours) Vital Signs Temp Pulse Resp BP Pulse Ox O2 Del Method 01/26/23 07:04 36.3 C L 97 H 16 140/84 98 Room Air Laboratory Results 01/26/23 01/26/23 Range/Units 07:21 07:21 WBC 5.82 (4.8-10.8) K/ul RBC 3.94 L (4.20-5.40) M/uL Hgb 11.7 L (12.0-16.0) g/dl Hct 34.4 L (37.0-47.0) % MCV 87.3 (80.0-100.0) fL MCH 29.7 (25.0-34.0) pg MCHC 34.0 (32.0-36.0) g/dL RDW Std Deviation 44.1 (36.4-46.3) fL RDW Coeff of Francisco 13.9 (11.5-14.5) % Plt Count 220 (130-400) K/uL MPV 10.6 (9.4-12.4) fL Sodium 138 (136-145) mmol/L Potassium 4.0 (3.5-5.1) mmol/L Chloride 105 (98-107) mmol/L Carbon Dioxide 26 (21-32) mmol/L Anion Gap 7 (3-11) BUN 11 (6-23) mg/dl Creatinine 0.48 L (0.6-1.2) mg/dl Est Cr Clr Drug Dosing 114.9 ml/min Est GFR ( Amer) 124.4 ml/min Est GFR (Non-Af Amer) 107.4 ml/min BUN/Creatinine Ratio 22.9 H (10-20) Glucose 111 H (70-99(Fasting)) mg/dl Calcium 9.6 (8.6-10.3) mg/dl Medications Administered Current Inpatient Medications Bisacodyl (Bisacodyl 10 Mg Supp) 10 mg [place] DAILY PRN PRN Reason: Constipation Stop: 02/16/23 17:56 Doxycycline Hyclate (Doxycycline Hyclate 100 Mg Cap) 100 mg PO BID [facility] Stop: 01/28/23 20:59 Last Admin: 01/26/23 07:56 Dose: 100 mg Enoxaparin Sodium (Enoxaparin Inj 40 Mg/0.4 Ml Syr) 40 mg SQ Q24H [facility] Stop: 02/16/23 18:29 Last Admin: 01/25/23 18:09 Dose: 40 mg Heparin Sodium (Beef Lung) (Heparin 10 Unit/Ml 5 Ml Flush) 5 ml FLUSH PRN PRN PRN Reason: Flush Stop: 02/18/23 14:20 Dextrose (D10w) 1,000 mls @ 0 mls/hr IV .Q0M PRN PRN Reason: protocol (see label comments) Stop: 02/18/23 12:06 Levetiracetam (Levetiracetam 500 Mg Tab) 1,000 mg PO BID [facility] Stop: 02/22/23 20:59 Last Admin: 01/26/23 07:56 Dose: 1,000 mg Metoprolol Tartrate (Metoprolol Tartrate 25 Mg Tab) 12.5 mg PO BID [facility] Stop: 02/23/23 20:59 Last Admin: 01/26/23 07:56 Dose: 12.5 mg Ondansetron HCl (Ondansetron Inj 2 Mg/Ml 2 Ml Vial) 4 mg IV Q6H PRN PRN Reason: Nausea And Vomiting Stop: 02/16/23 17:56 Pantoprazole Sodium (Pantoprazole 40 Mg Tab) 40 mg PO DAILY [facility] Stop: 02/25/23 08:59 Last Admin: 01/26/23 07:57 Dose: 40 mg Polyethylene Glycol (Polyethylene (Miralax) 17 Gm Pack) 17 gm PO DAILY PRN PRN Reason: Constipation Stop: 02/24/23 13:31 Senna/Docusate Sodium (Docusate Sodium/Senna 50/8.6mg Tab) 1 tab PO DAILY PRN PRN Reason: Constipation Stop: 02/24/23 13:31 Sodium Biphosphate/Sodium Phosphate (Sod Phosphate/Sod Biphosphate Enema 132 Ml Btl) 132 ml [place] DAILY PRN PRN Reason: Constipation Stop: 02/16/23 17:56
[2023-01-26] MEDS: ENOXAPARIN INJ 40 MG/0.4 ML SYR SQ SCH (17:54)
[2023-01-27] MEDS: METOPROLOL TARTRATE 25 MG TAB PO SCH ×2 (08:32→20:11)
[2023-01-27] MEDS: DOXYCYCLINE HYCLATE 100 MG CAP PO SCH ×2 (08:33→20:12)
[2023-01-27] MEDS: levETIRAcetam 500 MG TAB PO SCH ×2 (08:33→20:17)
[2023-01-27] MEDS: PANTOprazole 40 MG TAB PO SCH (08:36)
--- NOTE | 2023-01-27 09:33 | Hospitalist Progress Note ---
Date of Service January 27, 2023 Assessment & Plan (1) Encephalopathy: Plan: Per Dr. Richter's note w/ addendum Patient is a 57-year-old female with PMH HTN, hyperlipidemia, paranoid schizophrenia, hyponatremia secondary to psychogenic polydipsia presented to ER from [facility] rehab secondary to pulling her PEG tube. [place] [facility] [place]-01/09/2023 for encephalopathy, severe hyponatremia. Had long-term EEG that initially showed nonconvulsive status epilepticus. Last long-term EEG on 12/19/2022 recorded no seizures. Continued with encephalopathy throughout hospital course. It was thought that patient's encephalopathy was likely multifactorial secondary to hypoactive delirium, thalamic injury and possible infection. Neurology had reported unclear prognosis. Patient continues to be encephalopathic One-to-one observation Appreciate palliative care input Plan to discharge to rehab as able NSVT could not administer p.o. meds initially Continue IV Lopressor>>> transition to metoprolol 12.5 mg twice daily Monitor and replace electrolytes as needed Adjust metoprolol dose as needed No recurrence of issues (2) Impaired swallowing: Plan: Due to encephalopathy patient was unable to take p.o. PEG tube placed on 01/05/2023 Patient pulled out PEG tube prior to admission GI consulted and reported PEG tube site already closed and did not feel it was safe to place another PEG tube secondary to patient's current altered mental status and likelihood of pulling out any additional PEG tube. GI had recommend TPN if patient needs ongoing nutrition. Recommends to reach back out to GI if any further needs. Speech consulted Dysphagia --Video barium swallow:No tracheal aspiration. On TPN/PPN--discontinued as patient tolerating oral intake now Speech Therapy:Recommends regular diet, finger foods. Needs direct supervision with all feeds. Aspiration precautions Tolerating current diet with no issues Urinary retention Failed voiding trial Continue Villarreal catheter May need urology evaluation eventually as outpatient Sacral wound Empirically on doxycycline--plan to continue 5-day course Continue wound care (3) Sinus tachycardia: Plan: History sinus tachycardia during hospital admission at [facility] [place]24-01/23 without noted underlying cause. Had negative CTA chest Recently treated for aspiration pneumonia with Rocephin, Flagyl. Patient treated for UTI with Rocephin. 12/28/2022 urine cultures positive Pseudomonas Enterococcus. Urine cultures 01/02 negative (4) Compression fracture of T11 vertebra: Plan: Subacute T11 compression deformity noted on outside imaging in 12/2022 (5) Paranoid schizophrenia: Plan: History of paranoid schizophrenia Previously on Cogentin, Seroquel, sertraline Not currently on medications secondary to current encephalopathy (6) HTN (hypertension): Plan: BP stable Continue metoprolol (7) HLD (hyperlipidemia): Plan: Not on medication DVT Prophylaxis Lovenox SQ Code Status DNR/DNI Disposition Rehab when accepted Admission and Anticipated Discharge Date Admission Date: January 17, 2023 Subjective Patient is seen and examined at bedside Sitting up in bed, in NAD, does not answer appropriately Unable to obtain any history due to cognitive status No distress on exam Sitter at bedside Discussed w/ RN/ sitter at the bedside Review of Systems Review of Systems: Unobtainable due to cognitive status Physical Exam Physical Exam: General Appearance:Moderately built and nourished, no apparent distress Head: normocephalic, Atraumatic Eyes: normal inspection, EOMI Neck: supple Respiratory/Chest: Normal breath sounds, CTA, No accessory muscle use Cardiovascular: S1, S2, No murmur Abdomen/GI: Soft, Non tender, Bowel sounds present Extremities/Musculoskeletal:normal inspection, no edema Neurologic/Psych: Confused, not answering appropriately, moves extremities Skin: normal color, warm Results & Data Results & Data Vital Signs (Past 12 Hours) Vital Signs Temp Pulse Resp BP Pulse Ox O2 Del Method 01/27/23 06:56 37.1 C 106 H 18 119/78 98 Room Air 01/26/23 22:40 36.6 C 97 H 19 129/88 96 Room Air Medications Administered Current Inpatient Medications Bisacodyl (Bisacodyl 10 Mg Supp) 10 mg [place] DAILY PRN PRN Reason: Constipation Stop: 02/16/23 17:56 Doxycycline Hyclate (Doxycycline Hyclate 100 Mg Cap) 100 mg PO BID [facility] Stop: 01/28/23 20:59 Last Admin: 01/27/23 08:33 Dose: 100 mg Enoxaparin Sodium (Enoxaparin Inj 40 Mg/0.4 Ml Syr) 40 mg SQ Q24H [facility] Stop: 02/16/23 18:29 Last Admin: 01/26/23 17:54 Dose: 40 mg Heparin Sodium (Beef Lung) (Heparin 10 Unit/Ml 5 Ml Flush) 5 ml FLUSH PRN PRN PRN Reason: Flush Stop: 02/18/23 14:20 Dextrose (D10w) 1,000 mls @ 0 mls/hr IV .Q0M PRN PRN Reason: protocol (see label comments) Stop: 02/18/23 12:06 Levetiracetam (Levetiracetam 500 Mg Tab) 1,000 mg PO BID [facility] Stop: 02/22/23 20:59 Last Admin: 01/27/23 08:33 Dose: 1,000 mg Metoprolol Tartrate (Metoprolol Tartrate 25 Mg Tab) 12.5 mg PO BID [facility] Stop: 02/23/23 20:59 Last Admin: 01/27/23 08:32 Dose: 12.5 mg Ondansetron HCl (Ondansetron Inj 2 Mg/Ml 2 Ml Vial) 4 mg IV Q6H PRN PRN Reason: Nausea And Vomiting Stop: 02/16/23 17:56 Pantoprazole Sodium (Pantoprazole 40 Mg Tab) 40 mg PO DAILY [facility] Stop: 02/25/23 08:59 Last Admin: 01/27/23 08:36 Dose: 40 mg Polyethylene Glycol (Polyethylene (Miralax) 17 Gm Pack) 17 gm PO DAILY PRN PRN Reason: Constipation Stop: 02/24/23 13:31 Senna/Docusate Sodium (Docusate Sodium/Senna 50/8.6mg Tab) 1 tab PO DAILY PRN PRN Reason: Constipation Stop: 02/24/23 13:31 Sodium Biphosphate/Sodium Phosphate (Sod Phosphate/Sod Biphosphate Enema 132 Ml Btl) 132 ml [place] DAILY PRN PRN Reason: Constipation Stop: 02/16/23 17:56
[2023-01-27 16:18] LABS: Hematocrit (blood only) 31.5 % (37.0-47.0); Hemoglobin 10.5 g/dl (12.0-16.0); Mean Corpuscular Hemoglobin 29.5 pg (25.0-34.0); Mean Corpuscular Hgb Conc 33.3 g/dL (32.0-36.0); Mean Corpuscular Volume 88.5 fL (80.0-100.0); Mean Platelet Volume 10.1 fL (9.4-12.4); Platelet Count 230 K/uL (130-400); RDW Coefficient of Variation 13.8 % (11.5-14.5); Red Blood Count 3.56 M/uL (4.20-5.40); White Blood Count 6.74 K/ul (4.8-10.8)
[2023-01-27 16:33] LABS: Calcium 8.9 mg/dl (8.6-10.3); Creatinine Clr Calc Pharmacy 123.6 ml/min; Est GFR (African American) 127.1 ml/min; Est GFR (Non-African American) 109.7 ml/min; Magnesium 1.7 mg/dl (1.7-2.4); Potassium 3.7 mmol/L (3.5-5.1)
[2023-01-27] MEDS: ENOXAPARIN INJ 40 MG/0.4 ML SYR SQ SCH (17:34)
[2023-01-28] MEDS ORDERED: MAGNESIUM SULFATE / D5W 1 GM/100 ML BAG IV ONE (08:23)
--- NOTE | 2023-01-28 08:26 | Hospitalist Progress Note ---
Date of Service January 28, 2023 Assessment & Plan (1) Encephalopathy: Plan: Per Dr. Richter's note w/ addendum Patient is a 57-year-old female with PMH HTN, hyperlipidemia, paranoid schizophrenia, hyponatremia secondary to psychogenic polydipsia presented to ER from [facility] rehab secondary to pulling her PEG tube. Admission at [facility] [place] 12/14/22-01/09/2023 for encephalopathy, severe hyponatremia. Had long-term EEG that initially showed nonconvulsive status epilepticus. Last long-term EEG on 12/19/2022 recorded no seizures. Continued with encephalopathy throughout hospital course. It was thought that patient's encephalopathy was likely multifactorial secondary to hypoactive delirium, thalamic injury and possible infection. Neurology had reported unclear prognosis. Patient continues to be encephalopathic One-to-one observation Appreciate palliative care input Plan to discharge to rehab as able NSVT could not administer p.o. meds initially Continue IV Lopressor>>> transition to metoprolol 12.5 mg twice daily Monitor and replace electrolytes as needed Adjust metoprolol dose as needed No recurrence of issues (2) Impaired swallowing: Plan: Due to encephalopathy patient was unable to take p.o. PEG tube placed on 01/05/2023 Patient pulled out PEG tube prior to admission GI consulted and reported PEG tube site already closed and did not feel it was safe to place another PEG tube secondary to patient's current altered mental status and likelihood of pulling out any additional PEG tube. GI had recommend TPN if patient needs ongoing nutrition. Recommends to reach back out to GI if any further needs. Speech consulted Dysphagia --Video barium swallow:No tracheal aspiration. On TPN/PPN--discontinued as patient tolerating oral intake now Speech Therapy:Recommends regular diet, finger foods. Needs direct supervision with all feeds. Aspiration precautions Tolerating current diet with no issues Urinary retention Failed voiding trial Continue Mccarthy catheter May need urology evaluation eventually as outpatient Sacral wound Empirically on doxycycline--plan to continue 5-day course Continue wound care (3) Sinus tachycardia: Plan: History sinus tachycardia during hospital admission at [facility] [place] 12/24-01/23 without noted underlying cause. Had negative CTA chest Recently treated for aspiration pneumonia with Rocephin, Flagyl. Patient treated for UTI with Rocephin. 12/28/2022 urine cultures positive Pseudomonas Enterococcus. Urine cultures 01/02 negative (4) Compression fracture of T11 vertebra: Plan: Subacute T11 compression deformity noted on outside imaging in 12/2022 (5) Paranoid schizophrenia: Plan: History of paranoid schizophrenia Previously on Cogentin, Seroquel, sertraline Not currently on medications secondary to current encephalopathy (6) HTN (hypertension): Plan: BP stable Continue metoprolol (7) HLD (hyperlipidemia): Plan: Not on medication DVT Prophylaxis Lovenox SQ Code Status DNR/DNI Disposition Rehab when accepted Admission and Anticipated Discharge Date Admission Date: January 17, 2023 Subjective Patient is seen and examined at bedside Laying in bed, in NAD, does not answer appropriately Unable to obtain any history due to cognitive status No distress on exam pulled mccarthy catheter this AM, RN was able to re-insert Discussed w/ RN/ sitter at the bedside , pt continues to be very impulsive Review of Systems Review of Systems: All systems reviewed & are unremarkable except as noted in Subjective Physical Exam Physical Exam: General Appearance:Moderately built and nourished, no apparent distress Head: normocephalic, Atraumatic Eyes: normal inspection, EOMI Neck: supple Respiratory/Chest: Normal breath sounds, CTA, No accessory muscle use Cardiovascular: S1, S2, No murmur Abdomen/GI: Soft, Non tender, Bowel sounds present Extremities/Musculoskeletal:normal inspection, no edema Neurologic/Psych: Confused, not answering appropriately, moves extremities Skin: normal color, warm Results & Data Results & Data Vital Signs (Past 12 Hours) Vital Signs Pulse Resp BP Pulse Ox 01/28/23 07:55 119 H 20 147/98 H 96 Laboratory Results 01/27/23 01/27/23 Range/Units 16:00 16:00 WBC 6.74 (4.8-10.8) K/ul RBC 3.56 L (4.20-5.40) M/uL Hgb 10.5 L (12.0-16.0) g/dl Hct 31.5 L (37.0-47.0) % MCV 88.5 (80.0-100.0) fL MCH 29.5 (25.0-34.0) pg MCHC 33.3 (32.0-36.0) g/dL RDW Std Deviation 45.0 (36.4-46.3) fL RDW Coeff of Francisco 13.8 (11.5-14.5) % Plt Count 230 (130-400) K/uL MPV 10.1 (9.4-12.4) fL Sodium 138 (136-145) mmol/L Potassium 3.7 (3.5-5.1) mmol/L Chloride 106 (98-107) mmol/L Carbon Dioxide 25 (21-32) mmol/L Anion Gap 7 (3-11) BUN 9 (6-23) mg/dl Creatinine 0.45 L (0.6-1.2) mg/dl Est Cr Clr Drug Dosing 123.6 ml/min Est GFR ( Amer) 127.1 ml/min Est GFR (Non-Af Amer) 109.7 ml/min BUN/Creatinine Ratio 20.0 (10-20) Glucose 106 H (70-99(Fasting)) mg/dl Calcium 8.9 (8.6-10.3) mg/dl Phosphorus 4.0 (2.5-4.9) mg/dl Magnesium 1.7 (1.7-2.4) mg/dl Medications Administered Current Inpatient Medications Bisacodyl (Bisacodyl 10 Mg Supp) 10 mg [place] DAILY PRN PRN Reason: Constipation Stop: 02/16/23 17:56 Doxycycline Hyclate (Doxycycline Hyclate 100 Mg Cap) 100 mg PO BID [facility] Stop: 01/28/23 20:59 Last Admin: 01/27/23 20:12 Dose: 100 mg Enoxaparin Sodium (Enoxaparin Inj 40 Mg/0.4 Ml Syr) 40 mg SQ Q24H [facility] Stop: 02/16/23 18:29 Last Admin: 01/27/23 17:34 Dose: 40 mg Heparin Sodium (Beef Lung) (Heparin 10 Unit/Ml 5 Ml Flush) 5 ml FLUSH PRN PRN PRN Reason: Flush Stop: 02/18/23 14:20 Dextrose (D10w) 1,000 mls @ 0 mls/hr IV .Q0M PRN PRN Reason: protocol (see label comments) Stop: 02/18/23 12:06 Magnesium Sulfate/Dextrose (Magnesium Sulfate / D5w) 1 gm in 100 mls @ 50 mls/hr IV ONE ONE Stop: 01/28/23 10:22 Levetiracetam (Levetiracetam 500 Mg Tab) 1,000 mg PO BID [facility] Stop: 02/22/23 20:59 Last Admin: 01/27/23 20:17 Dose: 1,000 mg Metoprolol Tartrate (Metoprolol Tartrate 25 Mg Tab) 12.5 mg PO BID [facility] Stop: 02/23/23 20:59 Last Admin: 01/27/23 20:11 Dose: 12.5 mg Ondansetron HCl (Ondansetron Inj 2 Mg/Ml 2 Ml Vial) 4 mg IV Q6H PRN PRN Reason: Nausea And Vomiting Stop: 02/16/23 17:56 Pantoprazole Sodium (Pantoprazole 40 Mg Tab) 40 mg PO DAILY [facility]INA Stop: 02/25/23 08:59 Last Admin: 01/27/23 08:36 Dose: 40 mg Polyethylene Glycol (Polyethylene (Miralax) 17 Gm Pack) 17 gm PO DAILY PRN PRN Reason: Constipation Stop: 02/24/23 13:31 Senna/Docusate Sodium (Docusate Sodium/Senna 50/8.6mg Tab) 1 tab PO DAILY PRN PRN Reason: Constipation Stop: 02/24/23 13:31 Sodium Biphosphate/Sodium Phosphate (Sod Phosphate/Sod Biphosphate Enema 132 Ml Btl) 132 ml [place] DAILY PRN PRN Reason: Constipation Stop: 02/16/23 17:56
[2023-01-28] MEDS: PANTOprazole 40 MG TAB PO SCH (08:49)
[2023-01-28] MEDS: levETIRAcetam 500 MG TAB PO SCH ×2 (08:49→20:23)
[2023-01-28] MEDS: METOPROLOL TARTRATE 25 MG TAB PO SCH ×2 (08:49→20:23)
[2023-01-28] MEDS: DOXYCYCLINE HYCLATE 100 MG CAP PO SCH (08:51)
[2023-01-28] MEDS: ENOXAPARIN INJ 40 MG/0.4 ML SYR SQ SCH (18:12)
[2023-01-28] MEDS: MELATONIN 3 MG TAB PO PRN (21:50)
[2023-01-29] MEDS: METOPROLOL TARTRATE 25 MG TAB PO SCH ×2 (08:55→20:47)
[2023-01-29] MEDS: levETIRAcetam 500 MG TAB PO SCH ×2 (08:55→20:48)
[2023-01-29] MEDS: PANTOprazole 40 MG TAB PO SCH (08:56)
--- NOTE | 2023-01-29 13:50 | Hospitalist Progress Note ---
Date of Service January 29, 2023 Assessment & Plan (1) Encephalopathy: Plan: Patient is a 57-year-old female with PMH HTN, hyperlipidemia, paranoid schizophrenia, hyponatremia secondary to psychogenic polydipsia presented to ER from [facility] rehab secondary to pulling her PEG tube. Admission at [facility] 12/14/22-01/09/2023 for encephalopathy, severe hyponatremia. Had long-term EEG that initially showed nonconvulsive status epilepticus. Last long-term EEG on 12/19/2022 recorded no seizures. Continued with encephalopathy throughout hospital course. It was thought that patient's encephalopathy was likely multifactorial secondary to hypoactive delirium, thalamic injury and possible infection. Neurology had reported unclear prognosis. Patient continues to be encephalopathic One-to-one observation Appreciate palliative care input Plan to discharge to rehab as able NSVT could not administer p.o. meds initially Continue IV Lopressor>>> transition to metoprolol 12.5 mg twice daily Monitor and replace electrolytes as needed Adjust metoprolol dose as needed No recurrence of issues (2) Impaired swallowing: Plan: Due to encephalopathy patient was unable to take p.o. PEG tube placed on 2022 Patient pulled out PEG tube prior to admission GI consulted and reported PEG tube site already closed and did not feel it was safe to place another PEG tube secondary to patient's current altered mental status and likelihood of pulling out any additional PEG tube. GI had recommend TPN if patient needs ongoing nutrition. Recommends to reach back out to GI if any further needs. Speech consulted Dysphagia --Video barium swallow:No tracheal aspiration. On TPN/PPN--discontinued as patient tolerating oral intake now Speech Therapy:Recommends regular diet, finger foods. Needs direct supervision with all feeds. Aspiration precautions Tolerating current diet with no issues Urinary retention Failed voiding trial Continue Mccarthy catheter May need urology evaluation eventually as outpatient Sacral wound Empirically on doxycycline--plan to continue 5-day course Continue wound care (3) Sinus tachycardia: Plan: History sinus tachycardia during hospital admission at [facility] 12/24-01/23 without noted underlying cause. Had negative CTA chest Recently treated for aspiration pneumonia with Rocephin, Flagyl. treated for UTI 12/28/2022 urine cultures positive Pseudomonas Enterococcus. Urine cultures 01/02 negative. (4) Compression fracture of T11 vertebra: Plan: Subacute T11 compression deformity noted on outside imaging in 12/2022 (5) Paranoid schizophrenia: Plan: History of paranoid schizophrenia Previously on Cogentin, Seroquel, sertraline Not currently on medications secondary to current encephalopathy (6) HTN (hypertension): Plan: BP stable Continue metoprolol (7) HLD (hyperlipidemia): Plan: Not on medication DVT Prophylaxis Lovenox SQ Code Status DNR/DNI Disposition Rehab when accepted Admission and Anticipated Discharge Date Admission Date: January 17, 2023 Subjective Patient is seen and examined at bedside Laying in bed, in NAD, does not answer appropriately Unable to obtain any history due to cognitive status No distress on exam Pulled mccarthy catheter yesterday AM, RN was able to re-insert Met with family, and updated at the bedside. pt continues to be very impulsive with staff, more calm with family present Review of Systems Review of Systems: All systems reviewed & are unremarkable except as noted in Subjective Physical Exam Physical Exam: General Appearance: Moderately built and nourished, no apparent distress Head: normocephalic, Atraumatic Eyes: normal inspection, EOMI Neck: supple Respiratory/Chest: Normal breath sounds, CTA, No accessory muscle use Cardiovascular: S1, S2, No murmur Abdomen/GI: Soft, Non tender, Bowel sounds present Extremities/Musculoskeletal:normal inspection, no edema Neurologic/Psych: Confused, not answering appropriately, moves extremities Skin: normal color, warm Results & Data Results & Data Vital Signs (Past 12 Hours) Vital Signs Temp Pulse Resp BP Pulse Ox O2 Del Method 01/29/23 07:18 36.8 C 111 H 18 154/87 H 97 Room Air Medications Administered Current Inpatient Medications Bisacodyl (Bisacodyl 10 Mg Supp) 10 mg [place] DAILY PRN PRN Reason: Constipation Stop: 02/16/23 17:56 Enoxaparin Sodium (Enoxaparin Inj 40 Mg/0.4 Ml Syr) 40 mg SQ Q24H DINA Stop: 02/16/23 18:29 Last Admin: 01/28/23 18:12 Dose: 40 mg Heparin Sodium (Beef Lung) (Heparin 10 Unit/Ml 5 Ml Flush) 5 ml FLUSH PRN PRN PRN Reason: Flush Stop: 02/18/23 14:20 Dextrose (D10w) 1,000 mls @ 0 mls/hr IV .Q0M PRN PRN Reason: protocol (see label comments) Stop: 02/18/23 12:06 Levetiracetam (Levetiracetam 500 Mg Tab) 1,000 mg PO BID [facility] Stop: 02/22/23 20:59 Last Admin: 01/29/23 08:55 Dose: 1,000 mg Melatonin (Melatonin 3 Mg Tab) 3 mg PO BID PRN PRN Reason: Sleep Stop: 02/27/23 10:01 Last Admin: 01/28/23 21:50 Dose: 3 mg Metoprolol Tartrate (Metoprolol Tartrate 25 Mg Tab) 12.5 mg PO BID DINA Stop: 02/23/23 20:59 Last Admin: 01/29/23 08:55 Dose: 12.5 mg Ondansetron HCl (Ondansetron Inj 2 Mg/Ml 2 Ml Vial) 4 mg IV Q6H PRN PRN Reason: Nausea And Vomiting Stop: 02/16/23 17:56 Pantoprazole Sodium (Pantoprazole 40 Mg Tab) 40 mg PO DAILY DINA Stop: 02/25/23 08:59 Last Admin: 01/29/23 08:56 Dose: 40 mg Polyethylene Glycol (Polyethylene (Miralax) 17 Gm Pack) 17 gm PO DAILY PRN PRN Reason: Constipation Stop: 02/24/23 13:31 Senna/Docusate Sodium (Docusate Sodium/Senna 50/8.6mg Tab) 1 tab PO DAILY PRN PRN Reason: Constipation Stop: 02/24/23 13:31 Sodium Biphosphate/Sodium Phosphate (Sod Phosphate/Sod Biphosphate Enema 132 Ml Btl) 132 ml KS DAILY PRN PRN Reason: Constipation Stop: 02/16/23 17:56
[2023-01-29] MEDS: ENOXAPARIN INJ 40 MG/0.4 ML SYR SQ SCH (17:52)
[2023-01-29] MEDS: MELATONIN 3 MG TAB PO PRN (20:47)
[2023-01-30 07:25] LABS: Hematocrit (blood only) 33.2 % (37.0-47.0); Hemoglobin 10.9 g/dl (12.0-16.0); Mean Corpuscular Hemoglobin 29.3 pg (25.0-34.0); Mean Corpuscular Hgb Conc 32.8 g/dL (32.0-36.0); Mean Corpuscular Volume 89.2 fL (80.0-100.0); Mean Platelet Volume 10.3 fL (9.4-12.4); Platelet Count 292 K/uL (130-400); RDW Coefficient of Variation 13.9 % (11.5-14.5); RDW Standard Deviation 45.4 fL (36.4-46.3); Red Blood Count 3.72 M/uL (4.20-5.40); White Blood Count 6.68 K/ul (4.8-10.8)
[2023-01-30 07:42] LABS: Calcium 9.1 mg/dl (8.6-10.3); Creatinine Clr Calc Pharmacy 116.8 ml/min; Est GFR (African American) 125.3 ml/min; Est GFR (Non-African American) 108.1 ml/min; Magnesium 1.7 mg/dl (1.7-2.4); Phosphorus 3.4 mg/dl (2.5-4.9); Potassium 3.2 mmol/L (3.5-5.1)
[2023-01-30] MEDS: METOPROLOL TARTRATE 25 MG TAB PO SCH ×2 (08:00→21:25)
[2023-01-30] MEDS: PANTOprazole 40 MG TAB PO SCH (08:00)
[2023-01-30] MEDS: levETIRAcetam 500 MG TAB PO SCH (08:00)
[2023-01-30] MEDS ORDERED: POTASSIUM CHLORIDE CRTAB 20 MEQ TABCR PO STA (10:08)
--- NOTE | 2023-01-30 10:16 | Hospitalist Progress Note ---
Date of Service January 30, 2023 Assessment & Plan (1) Encephalopathy: Plan: Patient is a 57-year-old female with PMH HTN, hyperlipidemia, paranoid schizophrenia, hyponatremia secondary to psychogenic polydipsia presented to ER from [facility] rehab secondary to pulling her PEG tube. Admission at [facility] 12/14/22-01/09/2023 for encephalopathy, severe hyponatremia. Had long-term EEG that initially showed nonconvulsive status epilepticus. Last long-term EEG on 12/19/2022 recorded no seizures. Continued with encephalopathy throughout hospital course. It was thought that patient's encephalopathy was likely multifactorial secondary to hypoactive delirium, thalamic injury and possible infection. Neurology had reported unclear prognosis. Patient continues to be encephalopathic One-to-one observation Appreciate palliative care input Plan to discharge to rehab as able Continues to require one-on-one sitter as patient is quite impulsive. Seen yesterday with family, and patient was quite calm with them. Right now resting in bed, with 1 1 sitter. Per family she was not able to ambulate when she was in [place], or eat and therefore PEG tube was placed. Family feels that she is improving as she is ambulatory and eating. Patient is not talking much and not sure how much she can comprehend, but she seems to recognize family members. Discussed with the family that if she requires one-on-one sitter, we cannot discharge her to rehab. Some of her medications were stopped by psychiatry, neurology, may need to re-discuss with neurology and psychiatry regarding their recommendations at this time/future. NSVT could not administer p.o. meds initially Continue IV Lopressor>>> transitioned to metoprolol 12.5 mg twice daily Monitor and replace electrolytes as needed Adjust metoprolol dose as needed No recurrence of issues (2) Impaired swallowing: Plan: Due to encephalopathy patient was unable to take p.o. PEG tube placed on 01/05/2023 Patient pulled out PEG tube prior to admission GI consulted and reported PEG tube site already closed and did not feel it was safe to place another PEG tube secondary to patient's current altered mental status and likelihood of pulling out any additional PEG tube. GI had recommend TPN if patient needs ongoing nutrition. Recommends to reach back out to GI if any further needs. Speech consulted Dysphagia --Video barium swallow:No tracheal aspiration. On TPN/PPN--discontinued as patient tolerating oral intake now Speech Therapy:Recommends regular diet, finger foods. Needs direct supervision with all feeds. Aspiration precautions Tolerating current diet with no issues Urinary retention Failed voiding trial Continue Mccarthy catheter May need urology evaluation eventually as outpatient Sacral wound Empirically on doxycycline-- finished 5-day course Continue wound care (3) Sinus tachycardia: Plan: History sinus tachycardia during hospital admission at [facility] 12/24-01/23 without noted underlying cause. Had negative CTA chest Recently treated for aspiration pneumonia with Rocephin, Flagyl. treated for UTI 12/28/2022 urine cultures positive Pseudomonas Enterococcus. Urine cultures 01/02 negative. (4) Compression fracture of T11 vertebra: Plan: Subacute T11 compression deformity noted on outside imaging in 12/2022 (5) Paranoid schizophrenia: Plan: History of paranoid schizophrenia Previously on Cogentin, Seroquel, sertraline Not currently on medications secondary to current encephalopathy (6) HTN (hypertension): Plan: BP stable Continue metoprolol (7) HLD (hyperlipidemia): Plan: Not on medication DVT Prophylaxis Lovenox SQ Code Status DNR/DNI Disposition Rehab when accepted Admission and Anticipated Discharge Date Admission Date: January 17, 2023 Subjective Patient is seen and examined at bedside Laying in bed, in NAD, resting, 1:1 sitter present at the bedside. Says pt was not sleeping last night. Pt does not answer appropriately Unable to obtain any history due to cognitive status No distress on exam Pulled mccarthy catheter over the weekend, RN was able to re-insert Met with family, and updated at the bedside yesterday. Pt continues to be very impulsive with staff, more calm with family present Review of Systems Review of Systems: All systems reviewed & are unremarkable except as noted in Subjective Physical Exam Physical Exam: General Appearance: Moderately built and nourished, no apparent distress Head: normocephalic, Atraumatic Eyes: normal inspection, EOMI Neck: supple Respiratory/Chest: Normal breath sounds, CTA, No accessory muscle use Cardiovascular: S1, S2, No murmur Abdomen/GI: Soft, Non tender, Bowel sounds present Extremities/Musculoskeletal:normal inspection, no edema Neurologic/Psych: Confused, not answering appropriately, moves extremities Skin: normal color, warm Results & Data Results & Data Vital Signs (Past 12 Hours) Vital Signs Temp Pulse Resp BP Pulse Ox O2 Del Method 01/30/23 08:37 Room Air 01/30/23 07:59 136/83 01/30/23 07:57 36.9 C 112 H 18 140/95 99 Room Air Laboratory Results 01/30/23 01/30/23 Range/Units 06:14 06:14 WBC 6.68 (4.8-10.8) K/ul RBC 3.72 L (4.20-5.40) M/uL Hgb 10.9 L (12.0-16.0) g/dl Hct 33.2 L (37.0-47.0) % MCV 89.2 (80.0-100.0) fL MCH 29.3 (25.0-34.0) pg MCHC 32.8 (32.0-36.0) g/dL RDW Std Deviation 45.4 (36.4-46.3) fL RDW Coeff of Francisco 13.9 (11.5-14.5) % Plt Count 292 (130-400) K/uL MPV 10.3 (9.4-12.4) fL Sodium 139 (136-145) mmol/L Potassium 3.2 L (3.5-5.1) mmol/L Chloride 106 (98-107) mmol/L Carbon Dioxide 24 (21-32) mmol/L Anion Gap 9 (3-11) BUN 8 (6-23) mg/dl Creatinine 0.47 L (0.6-1.2) mg/dl Est Cr Clr Drug Dosing 116.8 ml/min Est GFR ( Amer) 125.3 ml/min Est GFR (Non-Af Amer) 108.1 ml/min BUN/Creatinine Ratio 17.0 (10-20) Glucose 113 H (70-99(Fasting)) mg/dl Calcium 9.1 (8.6-10.3) mg/dl Phosphorus 3.4 (2.5-4.9) mg/dl Magnesium 1.7 (1.7-2.4) mg/dl Medications Administered Current Inpatient Medications Bisacodyl (Bisacodyl 10 Mg Supp) 10 mg [place] DAILY PRN PRN Reason: Constipation Stop: 02/16/23 17:56 Enoxaparin Sodium (Enoxaparin Inj 40 Mg/0.4 Ml Syr) 40 mg SQ Q24H DINA Stop: 02/16/23 18:29 Last Admin: 01/29/23 17:52 Dose: 40 mg Heparin Sodium (Beef Lung) (Heparin 10 Unit/Ml 5 Ml Flush) 5 ml FLUSH PRN PRN PRN Reason: Flush Stop: 02/18/23 14:20 Last Admin: 01/30/23 06:15 Dose: 5 ml Dextrose (D10w) 1,000 mls @ 0 mls/hr IV .Q0M PRN PRN Reason: protocol (see label comments) Stop: 02/18/23 12:06 Levetiracetam (Levetiracetam 500 Mg Tab) 1,000 mg PO BID DINA Stop: 02/22/23 20:59 Last Admin: 01/30/23 08:00 Dose: 1,000 mg Magnesium Oxide (Magnesium Oxide 400 Mg Tab) 400 mg PO BID DINA Stop: 03/01/23 10:14 Melatonin (Melatonin 3 Mg Tab) 3 mg PO BID PRN PRN Reason: Sleep Stop: 02/27/23 10:01 Last Admin: 01/29/23 20:47 Dose: 3 mg Metoprolol Tartrate (Metoprolol Tartrate 25 Mg Tab) 12.5 mg PO BID DINA Stop: 02/23/23 20:59 Last Admin: 01/30/23 08:00 Dose: 12.5 mg Ondansetron HCl (Ondansetron Inj 2 Mg/Ml 2 Ml Vial) 4 mg IV Q6H PRN PRN Reason: Nausea And Vomiting Stop: 02/16/23 17:56 Pantoprazole Sodium (Pantoprazole 40 Mg Tab) 40 mg PO DAILY DINA Stop: 02/25/23 08:59 Last Admin: 01/30/23 08:00 Dose: 40 mg Polyethylene Glycol (Polyethylene (Miralax) 17 Gm Pack) 17 gm PO DAILY PRN PRN Reason: Constipation Stop: 02/24/23 13:31 Potassium Chloride (Potassium Chloride Crtab 20 Meq Tabcr) 40 meq PO NOW STA Stop: 01/30/23 10:09 Senna/Docusate Sodium (Docusate Sodium/Senna 50/8.6mg Tab) 1 tab PO DAILY PRN PRN Reason: Constipation Stop: 02/24/23 13:31 Sodium Biphosphate/Sodium Phosphate (Sod Phosphate/Sod Biphosphate Enema 132 Ml Btl) 132 ml [place] DAILY PRN PRN Reason: Constipation Stop: 02/16/23 17:56
[2023-01-30] MEDS: MAGNESIUM OXIDE 400 MG TAB PO SCH ×2 (11:21→21:27)
--- NOTE | 2023-01-30 11:41 | Psychiatric Consultation ---
Date of Consultation January 30, 2023 Impression / Recommendations Impression 57 yo female with a history of schizophrenia, severe hyponatremia presumably due to a hx of psych polypharmacy and polydipsia, admit on keppra s/p seizure with ongoing confusion, aphasia, and some behavioral disturbance. Her presentation is NOT consistent with exacerbation of her psychotic illness but rather her medical complications. That said, there is a need to safely manage restlesness so that she can engage in appropriate rehab services. She is a significant fall risk but not hypotensive. Would hope to avoid benzos and anticholinergics given resolving encephalopathy. One antipsychotic alone in low dose with controlled environment re: fluids and close monitoring of sodium likely best option. Seroquel very unlikely to contribute to dystonia which would affect swallow. Patient has a hx of reaction to Haldol, on cogentin at baseline but likely due to paliperidone. Previous dose of SEroquel 100 mg Bid, would start much lower. (1) Encephalopathy: (2) Paranoid schizophrenia: Plan would suggest Seroquel 12.5 mg BID with repeat sodium in 2-3 days defer to neuro on any need to reimage patient Keppra can cause irritability/mood changes in psych patients, would prefer Depakote from a psych standpoint as more widely used in schizophrenic patients but defer to neuro. Psych History Identifying Data 57 yo female with hx of schizophrenia and complications following severe hyponatremia (seizure, thalamic injury), admit 01/17/2023 from [facility] after pulling out PEG. Consult by Dr. Chao for medication recs. Chief Complaint requiring 1 on 1, off psych meds History of Present Illness Patient is unable to provide hx. She has progressed to ambulating, taking food, but continues with significant aphasia. Patient initially presented to [facility] found unresponsive by family on . Initial sodium 101, then 115, seized/life flighted to [place]. Discharged to [facility] with PEG. Apparently repeat MRI while at [place] was "progressive" but did mainly mentioned abnormal signal in the basal ganglia that was felt to be suggestive of metabolic encephalopathy or post ictal changes (no central pontine myelinolysis). Per palliative care note, patients sister/POA reported a 15 year hx of schizophrenia. She apparently also had a history of psychogenic polydipsia. Reviewed of [facility] and [facility] discharge summary appears that was taking Seroquel 100 mg BID on top of paliperidone (unclear dose and if oral or injection), Sertraline, and cogentin. On the medical floor patient remains confused, tries to get out of bed, staff walk behind her with wheelchair due to fall risk. Patient is described as "impulsive." Earlier in stay she pulled out mccarthy. Case reviewed briefly with Dr. Chao as her behavior is barrier to returning to rehab. Allergies Allergy/AdvReac Type Severity Reaction Status Date / Time haloperidol [From Haldol] Allergy Unknown Unknown Unverified 01/17/23 12:35 Penicillins Allergy Unknown Unknown Unverified 01/17/23 12:35 tetanus toxoid, adsorbed Allergy Unknown Unknown Unverified 01/17/23 12:35 Home Medications Medication Instructions Recorded Confirmed Type acetaminophen 325 mg tablet 650 mg PO Q4 PRN Pain 01/17/23 01/17/23 History (Tylenol) bisacodyl 10 mg rectal suppository [address] DAILY PRN Constipation 01/17/23 01/17/23 History dextrose 40 % oral gel 15 g PO ONCE PRN Hypoglycemia 01/17/23 01/17/23 History dextrose 50 % in water (D50W) 25 g IV ONCE PRN Hypoglycemia 01/17/23 01/17/23 History enoxaparin 40 mg/0.4 mL 40 mg subcut DAILY 01/17/23 01/17/23 History subcutaneous syringe levetiracetam 1,000 mg tablet 1,000 mg PO Q12H 01/17/23 01/17/23 History (Keppra) magnesium hydroxide 400 mg/5 mL 30 ml PO DAILY PRN Constipation 01/17/23 01/17/23 History oral suspension (Milk of Magnesia) omeprazole magnesium 10 mg oral 40 mg PO DAILY 01/17/23 01/17/23 History suspension,delayed release polyethylene glycol 3350 17 17 g PO DAILY PRN Constipation 01/17/23 01/17/23 History gram/dose oral powder (Miralax) sennosides 8.6 mg-docusate sodium 1 tab-cap PO DAILY PRN Constipation 01/17/23 01/17/23 History 50 mg tablet (Senokot-S) sodium phosphates 19 gram-[address] DAILY PRN Constipation 01/17/23 01/17/23 History gram/118 mL enema (Fleet Enema) Patient History Medical History Compression fracture of T11 vertebra Discussion about advance care planning held with family member Encephalopathy HLD (hyperlipidemia) HTN (hypertension) Impaired swallowing Palliative care by specialist Paranoid schizophrenia Surgical History History of colonoscopy 2018 History of esophagogastroduodenoscopy (EGD) 01/05/2023. [place] [facility] secondary to neurological disorder causing impaired swallowing Family History Other Cancer Diabetes Hypertension Social History Smoking Status: Unknown if ever smoked Hx Alcohol Use: No Hx Substance Use: No Communication Ability: Impaired Feels Safe at Home: Yes Physical Exam Psychiatric: patient has been sleeping, unable to provide hx at baseline. [place] reports of [place]. Vital Signs (Past 24 Hours): Last Vital Signs Temp 36.9 C 01/30/23 07:57 Pulse 112 H 01/30/23 07:57 Resp 18 01/30/23 07:57 BP 136/83 01/30/23 07:59 Pulse Ox 99 01/30/23 07:57 O2 Del Method Room Air 01/30/23 08:37 Review of Systems Unobtainable due to cognitive status Results & Data (PSY) Laboratory Results 01/30/23 01/30/23 Range/Units 06:14 06:14 WBC 6.68 (4.8-10.8) K/ul RBC 3.72 L (4.20-5.40) M/uL Hgb 10.9 L (12.0-16.0) g/dl Hct 33.2 L (37.0-47.0) % MCV 89.2 (80.0-100.0) fL MCH 29.3 (25.0-34.0) pg MCHC 32.8 (32.0-36.0) g/dL RDW Std Deviation 45.4 (36.4-46.3) fL RDW Coeff of Francisco 13.9 (11.5-14.5) % Plt Count 292 (130-400) K/uL MPV 10.3 (9.4-12.4) fL Sodium 139 (136-145) mmol/L Potassium 3.2 L (3.5-5.1) mmol/L Chloride 106 (98-107) mmol/L Carbon Dioxide 24 (21-32) mmol/L Anion Gap 9 (3-11) BUN 8 (6-23) mg/dl Creatinine 0.47 L (0.6-1.2) mg/dl Est Cr Clr Drug Dosing 116.8 ml/min Est GFR ( Amer) 125.3 ml/min Est GFR (Non-Af Amer) 108.1 ml/min BUN/Creatinine Ratio 17.0 (10-20) Glucose 113 H (70-99(Fasting)) mg/dl Calcium 9.1 (8.6-10.3) mg/dl Phosphorus 3.4 (2.5-4.9) mg/dl Magnesium 1.7 (1.7-2.4) mg/dl Medications Administered Enoxaparin Sodium (Enoxaparin Inj 40 Mg/0.4 Ml Syr) 40 mg SQ Q24H DINA Stop: 02/16/23 18:29 Last Admin: 01/29/23 17:52 Dose: 40 mg Documented By: Admin: 01/28/23 18:12 Dose: 40 mg Documented By: Admin: 01/27/23 17:34 Dose: 40 mg Documented By: Admin: 01/26/23 17:54 Dose: 40 mg Documented By: Admin: 01/25/23 18:09 Dose: 40 mg Documented By: Admin: 01/24/23 18:09 Dose: 40 mg Documented By: Admin: 01/23/23 18:01 Dose: 40 mg Documented By: Admin: 01/22/23 17:41 Dose: 40 mg Documented By: Admin: 01/21/23 16:47 Dose: 40 mg Documented By: Admin: 01/20/23 17:47 Dose: 40 mg Documented By: Admin: 01/19/23 18:07 Dose: 40 mg Documented By: Admin: 01/18/23 18:38 Dose: 40 mg Documented By: Admin: 01/17/23 19:20 Dose: 40 mg Documented By: NICKO Heparin Sodium (Beef Lung) (Heparin 10 Unit/Ml 5 Ml Flush) 5 ml FLUSH PRN PRN PRN Reason: Flush Stop: 02/18/23 14:20 Last Admin: 01/30/23 06:15 Dose: 5 ml Documented By: TONJAR Levetiracetam (Levetiracetam 500 Mg Tab) 1,000 mg PO BID DINA Stop: 02/22/23 20:59 Last Admin: 01/30/23 08:00 Dose: 1,000 mg Documented By: TLFrancy Admin: 01/29/23 20:48 Dose: 1,000 mg Documented By: Admin: 01/29/23 08:55 Dose: 1,000 mg Documented By: Admin: 01/28/23 20:23 Dose: 1,000 mg Documented By: Admin: 01/28/23 08:49 Dose: 1,000 mg Documented By: Admin: 01/27/23 20:17 Dose: 1,000 mg Documented By: Admin: 01/27/23 08:33 Dose: 1,000 mg Documented By: Admin: 01/26/23 20:51 Dose: 1,000 mg Documented By: Admin: 01/26/23 07:56 Dose: 1,000 mg Documented By: Admin: 01/25/23 20:48 Dose: 1,000 mg Documented By: Admin: 01/25/23 08:07 Dose: 1,000 mg Documented By: Admin: 01/24/23 21:35 Dose: 1,000 mg Documented By: Admin: 01/24/23 09:39 Dose: 1,000 mg Documented By: Admin: 01/23/23 21:46 Dose: 1,000 mg Documented By: PK Magnesium Oxide (Magnesium Oxide 400 Mg Tab) 400 mg PO BID DINA Stop: 03/01/23 10:29 Last Admin: 01/30/23 11:21 Dose: 400 mg Documented By: TLFrancy Melatonin (Melatonin 3 Mg Tab) 3 mg PO BID PRN PRN Reason: Sleep Stop: 02/27/23 10:01 Last Admin: 01/29/23 20:47 Dose: 3 mg Documented By: Admin: 01/28/23 21:50 Dose: 3 mg Documented By: TYRA Metoprolol Tartrate (Metoprolol Tartrate 25 Mg Tab) 12.5 mg PO BID DINA Stop: 02/23/23 20:59 Last Admin: 01/30/23 08:00 Dose: 12.5 mg Documented By: Admin: 01/29/23 20:47 Dose: 12.5 mg Documented By: Admin: 01/29/23 08:55 Dose: 12.5 mg Documented By: Admin: 01/28/23 20:23 Dose: 12.5 mg Documented By: Admin: 01/28/23 08:49 Dose: 12.5 mg Documented By: Admin: 01/27/23 20:11 Dose: 12.5 mg Documented By: Admin: 01/27/23 08:32 Dose: 12.5 mg Documented By: Admin: 01/26/23 20:51 Dose: 12.5 mg Documented By: Admin: 01/26/23 07:56 Dose: 12.5 mg Documented By: Admin: 01/25/23 20:48 Dose: 12.5 mg Documented By: Admin: 01/25/23 08:08 Dose: 12.5 mg Documented By: Admin: 01/24/23 21:35 Dose: 12.5 mg Documented By: PK Pantoprazole Sodium (Pantoprazole 40 Mg Tab) 40 mg PO DAILY [facility] Stop: 02/25/23 08:59 Last Admin: 01/30/23 08:00 Dose: 40 mg Documented By: Admin: 01/29/23 08:56 Dose: 40 mg Documented By: Admin: 01/28/23 08:49 Dose: 40 mg Documented By: Admin: 01/27/23 08:36 Dose: 40 mg Documented By: Admin: 01/26/23 07:57 Dose: 40 mg Documented By: CARLA Coding Level of Care Code 37917 [facility] Intl Hosp Care Lvl 2 Diagnoses Encephalopathy G93.40 Paranoid schizophrenia F20.0
--- NOTE | 2023-01-30 12:15 | Neurology Consultation ---
Date of Consultation January 30, 2023 Assessment & Plan (1) Encephalopathy: Patient is significantly improved from when last seen at [facility]. Would continue to give her time to recover while trying to balance medication for her impulsivity. I agree with psychiatries plan to switch keppra to Depakote. Would do so with a Depakote load of 20mg/kg, then start maintenence same day and discontinue the keppra after loading. Agree with low dose seroquel as well, especially to help regulate sleep as I suspect she has some component of hospital delirium. Would otherwise defer to psych but remain very optimistic regarding the progress seen so far in her recovery. Please contact us with any further questions. Telehealth Consultation Telehealth Information Telehealth Information: I performed this visit using a real-time telehealth connection between my location and the patients location ([facility]). After connecting through interactive tele-video, patient was identified by name and date of and/or wristband check.Patient (or authorized healthcare sales representative advertising) was informed that this was a telemedicine visit and it was being conducted confidentially over secure lines. My office door was closed and no one else was present in the room with me.Patient (or authorized healthcare sales representative advertising) provided consent to proceed with the visit, expressed an understanding of privacy and security of the telemedicine visit, and gave permission to have a hospital sales representative advertising in the room in order to assist with the visit and to conduct portions of the visit, as needed. I informed the pa tient (or authorized healthcare sales representative advertising) that I reviewed their record and presented the opportunity for them to ask any questions regarding the visit today. The patient agreed to participate. History of Present Illness Reason for Consultation: Altered mental status Requesting Physician: Dr. Chao Attending Physician: Max Chao MD History of Present Illness Randi Baez is a 57 yo F with a history of schizophrenia found down on 12/14 in her bathtub with profound hyponatremia and GCS 3. She was transferred from [facility] to [facility] where she had an extensive hospital course, eventually discharged to rehab on 01/09. I reviewed the records from that admission, she had status epilepticus secondary to the hyponatremia and brain injury from her down time. MRI revealed extensive changes to the cortex and basal ganaglia. She required a PEG tube for feeding and was otherwise unresponsive and not following commands through her hospital course. She then presented to [facility] after discharge from [facility] after pulling out her peg tube. She is unable to contribute to the history but while at [facility], her mental status has significantly improved. She is more alert during the day and impulsively getting out of bed and walking the unit. There are reports that she has not been sleeping at night. More importantly she has begun to eat again and have verbal interactions with nursing staff and family. No further seizure activity noted, no abnormal movements otherwise. Allergies Allergy/AdvReac Type Severity Reaction Status Date / Time haloperidol [From Haldol] Allergy Unknown Unknown Unverified 01/17/23 12:35 Penicillins Allergy Unknown Unknown Unverified 01/17/23 12:35 tetanus toxoid, adsorbed Allergy Unknown Unknown Unverified 01/17/23 12:35 Home Medications Medication Instructions Recorded Confirmed Type acetaminophen 325 mg tablet 650 mg PO Q4 PRN Pain 01/17/23 01/17/23 History (Tylenol) bisacodyl 10 mg rectal suppository 10 mg OK DAILY PRN Constipation 01/17/23 01/17/23 History dextrose 40 % oral gel 15 g PO ONCE PRN Hypoglycemia 01/17/23 01/17/23 History dextrose 50 % in water (D50W) 25 g IV ONCE PRN Hypoglycemia 01/17/23 01/17/23 History enoxaparin 40 mg/0.4 mL 40 mg subcut DAILY 01/17/23 01/17/23 History subcutaneous syringe levetiracetam 1,000 mg tablet 1,000 mg PO Q12H 01/17/23 01/17/23 History (Keppra) magnesium hydroxide 400 mg/5 mL 30 ml PO DAILY PRN Constipation 01/17/2301/01 History oral suspension (Milk of Magnesia) omeprazole magnesium 10 mg oral 40 mg PO DAILY 01/17/23 01/17/23 History suspension,delayed release polyethylene glycol 3350 17 17 g PO DAILY PRN Constipation 01/17/23 01/17/23 History gram/dose oral powder (Miralax) sennosides 8.6 mg-docusate sodium 1 tab-cap PO DAILY PRN Constipation 01/17/23 01/17/23 History 50 mg tablet (Senokot-S) sodium phosphates 19 gram-7 118 ml OK DAILY PRN Constipation 01/17/23 01/17/23 History gram/118 mL enema (Fleet Enema) Patient History Medical History Compression fracture of T11 vertebra Discussion about advance care planning held with family member Encephalopathy HLD (hyperlipidemia) HTN (hypertension) Impaired swallowing Palliative care by specialist Paranoid schizophrenia Surgical History History of colonoscopy 2018 History of esophagogastroduodenoscopy (EGD) 01/05/2023. At [facility]. PEG tube placement secondary to neurological disorder causing impaired swallowing Family History Other Cancer Diabetes Hypertension Social History Smoking Status: Unknown if ever smoked Hx Alcohol Use: No Hx Substance Use: No Communication Ability: Impaired Feels Safe at Home: Yes Review of Systems Unable to obtain Physical Exam Mental Status: Awake and alert. Speech is fluent but nonsensical and whispered. Does not follow commands. Does not appear internally stimulated. Cranial Nerves: III/IV/: Versions intact without nystagmus, no gaze preference. VII: Facial expression symmetric Motor: Strength was symmetric and antigravity throughout. Reflexes: Unable to assess over telemedicine Gait: Narrow based and normal. Results & Data Vital Signs (Past 12 Hours) Vital Signs Temp Pulse Resp BP Pulse Ox O2 Del Method 01/30/23 08:37 Room Air 01/30/23 07:59 136/83 01/30/23 07:57 36.9 C 112 H 18 140/95 99 Room Air Laboratory Results Abnormal lab results 01/30/23 01/30/23 Range/Units 06:14 06:14 RBC 3.72 L (4.20-5.40) M/uL Hgb 10.9 L (12.0-16.0) g/dl Hct 33.2 L (37.0-47.0) % Potassium 3.2 L (3.5-5.1) mmol/L Creatinine 0.47 L (0.6-1.2) mg/dl Glucose 113 H (70-99(Fasting)) mg/dl
[2023-01-30] MEDS ORDERED: DIVALPROEX DELAY RELEASE 500 MG TAB PO ONE (14:45)
[2023-01-30] MEDS: ENOXAPARIN INJ 40 MG/0.4 ML SYR SQ SCH (18:20)
[2023-01-30] MEDS: DIVALPROEX DELAY RELEASE 500 MG TAB PO SCH (21:37)
[2023-01-30] MEDS: MELATONIN 3 MG TAB PO PRN (21:38)
[2023-01-31 06:37] LABS: Calcium 8.7 mg/dl (8.6-10.3); Magnesium 1.9 mg/dl (1.7-2.4); Potassium 3.7 mmol/L (3.5-5.1)
[2023-01-31 06:45] LABS: BUN Creatinine Ratio 19.2 (10-20); Creatinine Clr Calc Pharmacy 105.6 ml/min; Est GFR (African American) 121.2 ml/min; Est GFR (Non-African American) 104.6 ml/min; Phosphorus 4.5 mg/dl (2.5-4.9)
[2023-01-31] MEDS: METOPROLOL TARTRATE 25 MG TAB PO SCH ×2 (08:41→20:15)
[2023-01-31] MEDS: DIVALPROEX DELAY RELEASE 500 MG TAB PO SCH ×2 (08:41→20:14)
[2023-01-31] MEDS: MAGNESIUM OXIDE 400 MG TAB PO SCH ×2 (08:41→20:14)
[2023-01-31] MEDS: PANTOprazole 40 MG TAB PO SCH (08:41)
--- NOTE | 2023-01-31 09:34 | Psychiatric Progress Note ---
Date of Service January 31, 2023 Impression / Recommendations Impression 57 yo female with a history of schizophrenia, severe hyponatremia presumably due to a hx of psych polypharmacy and polydipsia, admit on keppra s/p seizure with ongoing confusion, aphasia, and some behavioral disturbance. Her presentation is NOT consistent with exacerbation of her psychotic illness but rather her medical complications. That said, there is a need to safely manage restlesness so that she can engage in appropriate rehab services. She is a significant fall risk but not hypotensive. Would hope to avoid benzos and anticholinergics given resolving encephalopathy. One antipsychotic alone in low dose with controlled environment re: fluids and close monitoring of sodium likely best option. Seroquel very unlikely to contribute to dystonia which would affect swallow. Patient has a hx of reaction to Haldol, on cogentin at baseline but likely due to paliperidone. Previous dose of SEroquel 100 mg Bid, would start much lower. As per initial consultation: more alert today. (1) Encephalopathy: (2) Paranoid schizophrenia: Plan no additional recs at this time, monitor on Depakote, avoid mccarthy if possible as patient cannot communicate her distress around it but understand she had some urinary retention. Antipsychotics can exacerbated, less likely with Seroquel at lower dose if needs to resume at the 12.5 mg BID. Interval History Identifying Information 57 yo female with hx of schizophrenia and complications following severe hyponatremia (seizure, thalamic injury), admit 01/17/2023 from [facility] after pulling out PEG. Consult by Dr. Chao on 01/30/2023 for medication recs. Chief Complaint resolving encephalopathy Review of Systems Notes unable to complete due to aphasia Subjective Subjective Patient was seen & assessed and interval progress reviewed with nursing. Slept overnight. Cooperative with 1-on-1. Early in day so current calm, ate breakfast. Neurology did agree with recommendation to try Depakote in place of Keppra and orders were switched. Hospitalist service did not initiate Seroquel retrial yet, will likely monitor on Depakote first. Physical Exam Psychiatric limited due to aphasia, responds with garbled speech when spoken to. difficulty following directions. Did not appear to be responding to internal stimuli. No abnormal motor movements. Vital Signs (Past 24 Hours) Last Vital Signs Temp 36.3 C L 01/31/23 08:00 Pulse 97 H 01/31/23 08:00 Resp 18 01/31/23 08:00 BP 139/92 01/31/23 08:00 Pulse Ox 96 01/31/23 08:00 O2 Del Method Room Air 01/31/23 08:00 Results & Data ([facility]) Laboratory Results Laboratory Results - last 24 hr 01/31/23 05:41 Sodium 140 Potassium 3.7 Chloride 106 Carbon Dioxide 26 Anion Gap 8 BUN 10 Creatinine 0.52 L Est Cr Clr Drug Dosing 105.6 Est GFR ( Amer) 121.2 Est GFR (Non-Af Amer) 104.6 BUN/Creatinine Ratio 19.2 Glucose 101 H Calcium 8.7 Phosphorus 4.5 D Magnesium 1.9 Current Inpatient Medications Current Inpatient Medications: Current Inpatient Medications Bisacodyl (Bisacodyl 10 Mg Supp) 10 mg MN DAILY PRN PRN Reason: Constipation Stop: 02/16/23 17:56 Divalproex Sodium (Divalproex Delay Release 500 Mg Tab) 500 mg PO BID DINA Stop: 03/01/23 20:59 Last Admin: 01/31/23 08:41 Dose: 500 mg Enoxaparin Sodium (Enoxaparin Inj 40 Mg/0.4 Ml Syr) 40 mg SQ Q24H DINA Stop: 02/16/23 18:29 Last Admin: 01/30/23 18:20 Dose: 40 mg Heparin Sodium (Beef Lung) (Heparin 10 Unit/Ml 5 Ml Flush) 5 ml FLUSH PRN PRN PRN Reason: Flush Stop: 02/18/23 14:20 Last Admin: 01/31/23 07:48 Dose: 5 ml Dextrose (D10w) 1,000 mls @ 0 mls/hr IV .Q0M PRN PRN Reason: protocol (see label comments) Stop: 02/18/23 12:06 Magnesium Oxide (Magnesium Oxide 400 Mg Tab) 400 mg PO BID DINA Stop: 03/01/23 10:29 Last Admin: 01/31/23 08:41 Dose: 400 mg Melatonin (Melatonin 3 Mg Tab) 3 mg PO BID PRN PRN Reason: Sleep Stop: 02/27/23 10:01 Last Admin: 01/30/23 21:38 Dose: 3 mg Metoprolol Tartrate (Metoprolol Tartrate 25 Mg Tab) 12.5 mg PO BID DINA Stop: 02/23/23 20:59 Last Admin: 01/31/23 08:41 Dose: 12.5 mg Ondansetron HCl (Ondansetron Inj 2 Mg/Ml 2 Ml Vial) 4 mg IV Q6H PRN PRN Reason: Nausea And Vomiting Stop: 02/16/23 17:56 Pantoprazole Sodium (Pantoprazole 40 Mg Tab) 40 mg PO DAILY DINA Stop: 02/25/23 08:59 Last Admin: 01/31/23 08:41 Dose: 40 mg Polyethylene Glycol (Polyethylene (Miralax) 17 Gm Pack) 17 gm PO DAILY PRN PRN Reason: Constipation Stop: 02/24/23 13:31 Senna/Docusate Sodium (Docusate Sodium/Senna 50/8.6mg Tab) 1 tab PO DAILY PRN PRN Reason: Constipation Stop: 02/24/23 13:31 Sodium Biphosphate/Sodium Phosphate (Sod Phosphate/Sod Biphosphate Enema 132 Ml Btl) 132 ml MN DAILY PRN PRN Reason: Constipation Stop: 02/16/23 17:56
--- NOTE | 2023-01-31 16:00 | Hospitalist Progress Note ---
Date of Service January 31, 2023 Assessment & Plan (1) Encephalopathy: Plan: Patient is a 57-year-old female with PMH HTN, hyperlipidemia, paranoid schizophrenia, hyponatremia secondary to psychogenic polydipsia presented to ER from [facility] rehab secondary to pulling her PEG tube. Admission at [facility] 12/14/22-01/09/2023 for encephalopathy, severe hyponatremia. Had long-term EEG that initially showed nonconvulsive status epilepticus. Last long-term EEG on 12/19/2022 recorded no seizures. Continued with encephalopathy throughout hospital course. It was thought that patient's encephalopathy was likely multifactorial secondary to hypoactive delirium, thalamic injury and possible infection. Neurology had reported unclear prognosis. Patient has significant improvement now. However she remains on one-to-one observation. Appreciate neurology, palliative and psychiatry input. Continue Depakote Resumed low-dose Seroquel per psychiatry Repeat sodium level in next few days. QTc normal. NSVT-resolved. Continue Lopressor-dose uptitrated given persistent tachycardia (2) Impaired swallowing: Plan: Due to encephalopathy patient was unable to take p.o. PEG tube placed on 01/05/2023 Patient pulled out PEG tube prior to admission GI consulted and reported PEG tube site already closed and did not feel it was safe to place another PEG tube secondary to patient's current altered mental status and likelihood of pulling out any additional PEG tube. GI had recommend TPN if patient needs ongoing nutrition. Recommends to reach back out to GI if any further needs. Speech consulted Dysphagia--Video barium swallow:No tracheal aspiration. On TPN/PPN--discontinued as patient tolerating oral intake now Speech Therapy:Recommends regular diet, finger foods. Needs direct supervision with all feeds. Aspiration precautions Tolerating current diet with no issues Urinary retention-patient pulled out Villarreal multiple times. Monitor off of Villarreal with bladder scans and intermittent straight cath as needed. Outpatient urology evaluation if becomes an issue. Sacral wound- Empirically on doxycycline-- finished 5-day course. Continue wound care (3) Compression fracture of T11 vertebra: Plan: Subacute T11 compression deformity noted on outside imaging in 12/2022 (4) Paranoid schizophrenia: Plan: History of paranoid schizophrenia Previously on Cogentin, Seroquel, sertraline Not currently on medications secondary to current encephalopathy (5) HTN (hypertension): Plan: BP stable Continue metoprolol (6) HLD (hyperlipidemia): Plan: Not on medication DVT Prophylaxis- Lovenox SQ Code Status- DNR/DNI Disposition-anticipate discharge to [facility] tomorrow Admission and Anticipated Discharge Date Admission Date: January 17, 2023 Subjective Patient was seen and examined at bedside. She is better. No fever, chills, chest pain or shortness of breath, nausea or vomiting. Normal appetite, regular bowel movements[place] Review of Systems Review of Systems: All systems reviewed & are unremarkable except as noted in Subjective Physical Exam Physical Exam: General: Sitting comfortably in chair eating Jell-O, not in distress, on room air HEENT: EOMI, PHILIP, MMM Chest: Clear breath sounds bilaterally, no wheezes or crackles CVS: Regular rate and rhythm, normal heart sounds, no murmur Abdomen: Soft, non tender, not distended, normal bowel sounds Neuro: Awake, alert, answers simple questions, non focal Extremities: No cyanosis, clubbing or edema Results & Data Results & Data Vital Signs (Past 12 Hours) Vital Signs Temp Pulse Resp BP Pulse Ox O2 Del Method 01/31/23 08:00 Room Air 01/31/23 08:00 36.3 C L 97 H 18 139/92 96 Room Air Laboratory Results [facility] 01/31/23 05:41 Sodium 140 Potassium 3.7 Chloride 106 Carbon Dioxide 26 BUN 10 Creatinine 0.52 L Glucose 101 H Calcium 8.7
[2023-01-31] MEDS: ENOXAPARIN INJ 40 MG/0.4 ML SYR SQ SCH (18:19)
[2023-01-31] MEDS: MELATONIN 3 MG TAB PO PRN (20:14)
[2023-01-31] MEDS: QUEtiapine FUMARATE 25 MG TABLET PO SCH (20:15)
[2023-01-31] MEDS ORDERED: QUEtiapine FUMARATE 25 MG TABLET PO SCH (21:00)
[2023-02-01] MEDS: MAGNESIUM OXIDE 400 MG TAB PO SCH (08:34)
[2023-02-01] MEDS: PANTOprazole 40 MG TAB PO SCH (08:35)
[2023-02-01] MEDS: DIVALPROEX DELAY RELEASE 500 MG TAB PO SCH (08:39)
[2023-02-01] MEDS: QUEtiapine FUMARATE 25 MG TABLET PO SCH (08:40)
[2023-02-01] MEDS ORDERED: METOPROLOL TARTRATE 50 MG TAB PO SCH (09:00)
[2023-02-01 09:34] LABS: BUN Creatinine Ratio 19.1 (10-20); Calcium 8.9 mg/dl (8.6-10.3); Creatinine Clr Calc Pharmacy 116.8 ml/min; Est GFR (African American) 125.3 ml/min; Est GFR (Non-African American) 108.1 ml/min; Potassium 3.5 mmol/L (3.5-5.1)
--- NOTE | 2023-02-01 16:31 | Hospitalist Progress Note ---
Date of Service February 01, 2023 Assessment & Plan (1) Encephalopathy: (2) Impaired swallowing: (3) Compression fracture of T11 vertebra: (4) Paranoid schizophrenia: (5) HTN (hypertension): (6) HLD (hyperlipidemia): Admission and Anticipated Discharge Date Admission Date: January 17, 2023 Subjective Patient was seen and examined at bedside. She is better. No fever, chills, chest pain or shortness of breath, nausea or vomiting. Normal appetite, regular bowel movements[place]. Results & Data Results & Data Vital Signs (Past 12 Hours) Vital Signs Temp Pulse Pulse Resp BP Pulse Ox O2 Del Method 02/01/23 16:00 36.8 C 88 16 127/80 97 Room Air 02/01/23 07:20 Room Air 02/01/23 08:44 109 H 142/90 H 02/01/23 07:18 36.6 C 107 H 18 142/81 H 99 Room Air
--- NOTE | 2023-02-01 17:20 | Electrocardiogram Report ---
Test Reason : Blood Pressure : / mmHG Vent. Rate : 104 BPM Atrial Rate : 104 BPM P-R Int : 116 ms QRS Dur : 084 ms QT Int : 356 ms P-R-T Axes : 031 -21 009 degrees QTc Int : 468 ms Poor data quality, interpretation may be adversely affected Sinus tachycardia Minimal voltage criteria for LVH, may be normal variant Borderline ECG When compared with ECG of 17-JAN-2023 19:49, No significant change Confirmed by Horacio Nagy ([id number]) on 02/01/2023 5:19:55 PM Referred By: [facility] Confirmed By:Horacio Nagy
--- NOTE | 2023-02-01 17:21 | Discharge Summary ---
Discharge Summary Date of Service February 01, 2023 Notes For Next Care Provider Admitted from [facility] 10/05 pulling out PEG tube. Able to now eat finger foods with supervision present due to impaired impulsivity. Monitor fluid intake to prevent polydipsia. Med changes below per psych, neuro Medication Changes From Visit Continue Depakote, which was started on admission. Keppra discontinued. Seroquel resumed at lower dose - 12.5mg BID. Admission HPI Per Admitting Provider Patient is a 57-year-old female with PMH HTN, hyperlipidemia, paranoid schizophrenia, hyponatremia secondary to psychogenic polydipsia presented to ER from [facility] rehab secondary to pulling her PEG tube out. History obtained from extensive chart review. Patient with history hospitalization 12/14/2022- 01/09/[address] [facility] for encephalopathy. Patient initially presented to [facility] reportedly found unresponsive and was intubated and was transferred to [facility]. Patient had severe hyponatremia with a sodium of 105. -Patient had long-term EEG monitoring revealed nonconvulsive status epilepticus. Patient was loaded with Keppra and started on Versed. Given status epilepticus patient's sodium quickly corrected to 115 within the first 24 hours. Patient's sedation was weaned on 12/18 and initially became more alert however reported mental status worsened again. Long-term EEG 12/19/2022 no seizures recorded. Patient had acute hypoxemic respiratory failure secondary to aspiration pneumonia. Patient extubated 12/28/2022 however her mental status did not improve. -12/28/2022 urine cultures positive Pseudomonas, Enterococcus. Urine cultures 01/02 negative. Patient completed antibiotic course for aspiration pneumonia, and UTI with Rocephin, Flagyl -Patient continued with encephalopathy throughout hospital course. It was thought that patient's encephalopathy was likely multifactorial secondary to hypoactive delirium, thymic injury and possible infection. It is reported had unclear prognosis. -Due to encephalopathy patient was unable to take p.o., family discussion took place and wished for PEG tube. Patient had PEG tube placed on 01/05/2023. It is reported that several meetings with patient's family took place. -It was noted during entire hospitalization patient had sinus tachycardia, had negative CT PE study on 01/04/2023, TSH within normal limits. It was recommended patient be on Keppra 1 g twice daily indefinitely -Had noted subacute T11 compression deformity -MRI brain on 12/23/22 showing "interval progression of diffuse signal abnormality involving the cortical ribbon with posterior convexity predissection and development of new signal abnormality symmetrically involving the bilateral caudal nuclei, putamen, medial thalami with relative sparing of global bilateral ly. Stable associated mass effect manifested, including bilateral sulcal effacement. Findings may represent a combination of metabolic encephalopathy and seizures/postictal related changes. -MRI C-spine 12/23/2022: Edema and dorsal cervical paraspinal musculature and soft tissues extending from C1-C6. Multilevel spondylitic changes, most prominent at C5-C6 where there is mild spinal canal stenosis and mild to moderate bilateral neural foraminal narrowing. C4-C5 moderate right and moderate to severe left neural foraminal narrowing and no significant spinal canal stenosis. Patient was ultimately discharged to [facility] for rehab. It is reported that patient has had continued encephalopathy. Today she pulled out her PEG tube and was referred to ER for further evaluation and possible replacement of PEG tube. Admission Exam Per Admitting Provider General: WDWN Head: normocephalic, atraumatic Eyes: PERRL, EOM's intact, conjunctiva non-injected, anicteric ENT: normal inspection external ears, nose, mucous membranes moist Neck: supple, trachea midline, non-tender Lungs: clear, no respiratory distress, no wheezing/rhonchi/rales CV: RRR, no murmur, no JVD, no pretibial edema Abd: normal BS, soft, non-tender Ext: no cyanosis, no calf tenderness Neuro: Alert, eyes are open, pulling at blankets and lines, does not follow commands, does not speak Skin: warm, dry Principal Dx & Hospital Course #1 = Principal Diagnosis (1) Dislodged gastrostomy tube: (2) Impaired swallowing: (3) HLD (hyperlipidemia): (4) HTN (hypertension): (5) Sinus tachycardia: (6) Compression fracture of T11 vertebra: (7) Encephalopathy: (8) Paranoid schizophrenia: Plan Patient is a 57-year-old female with PMH HTN, hyperlipidemia, paranoid schizophrenia, hyponatremia secondary to psychogenic polydipsia presented to ER from [facility] rehab secondary to pulling her PEG tube out. Patient with history hospitalization 12/14/2022-01/09/[address] [facility] for encephalopathy. Patient initially presented to [facility] reportedly found unresponsive and was intubated and was transferred to [facility]. Patient had severe hyponatremia with a sodium of 105 and nonconvulsive status epilepticus. Was admitted to [facility] from [facility] due to self-pulling PEG tube. Patient has significant improvement since initial admission to [place] although still requiring 1:1 for impulsivity. Underwent speech eval and no tracheal aspiration noted on video barium swallow. TPN/PPN discontinued and patient tolerating PO finger foods but requires 1:1 feeding assistance due to impulsivity and tendency to eat too quickly. Water intake needs to be closely monitored due to polydipsia. Transitioned from Keppra to Depakote during admission per psychiatry and neuro input. Resumed low-dose Seroquel per psychiatry. Repeat sodium level in next few days. Lopressor-dose uptitrated given persistent tachycardia. Urinary retention noted but patient pulled out mccarthy - monitor off of mccarthy with bladder scans, intermittent straight cath as needed. Outpatient urology evaluation if becomes an issue. Sacral wound- Empirically on doxycycline-- finished 5-day course. Continue wound care. Hemodynamically stable and comfortable at time of discharge back to [facility]. Discharge Exam Gen: WD/WN, NAD, sittingup in bed, 1:1 present, alert, dysarthric but communicative, able to appropriate answer some questions HEENT: Normocephalic, atraumatic, conjunctivae moist, sclerae anicteric, mucous membranes moist Lung: Clear to Auscultation bilaterally, no wheezes/rales/rhonchi Heart: Regular rate, regular rhythm, no murmurs, rubs, or gallops Abdomen: Soft, NT, ND +BS x 4 Extremities: no edema Skin: Warm, no rash Updated Medication List Medication Instructions Recorded Confirmed Type acetaminophen 325 mg tablet 650 mg PO Q4 PRN Pain 01/17/23 01/17/23 History (Tylenol) bisacodyl 10 mg rectal suppository 10 mg NJ DAILY PRN Constipation 01/17/23 01/17/23 History dextrose 40 % oral gel 15 g PO ONCE PRN Hypoglycemia 01/17/23 01/17/23 History dextrose 50 % in water (D50W) 25 g IV ONCE PRN Hypoglycemia 01/17/23 01/17/23 History enoxaparin 40 mg/0.4 mL 40 mg subcut DAILY 01/17/23 01/17/23 History subcutaneous syringe levetiracetam 1,000 mg tablet 1,000 mg PO Q12H 01/17/23 01/17/23 History (Keppra) magnesium hydroxide 400 mg/5 mL 30 ml PO DAILY PRN Constipation 01/17/23 01/17/23 History oral suspension (Milk of Magnesia) omeprazole magnesium 10 mg oral 40 mg PO DAILY 01/17/23 01/17/23 History suspension,delayed release polyethylene glycol 3350 17 17 g PO DAILY PRN Constipation 01/17/23 01/17/23 History gram/dose oral powder (Miralax) sennosides 8.6 mg-docusate sodium 1 tab-cap PO DAILY PRN Constipation 01/17/23 01/17/23 History 50 mg tablet (Senokot-S) sodium phosphates 19 gram-7 118 ml NJ DAILY PRN Constipation 01/17/23 01/17/23 History gram/118 mL enema (Fleet Enema) Hospital Stay Data Consultations 01/17/23 13:51 ED Decision to Admit Stat 01/17/23 17:57 Consult Palliative Care Routine 01/30/23 10:16 Consult Neurology Routine 01/30/23 10:17 Consult Psychiatry Routine Diagnostic Imagining Performed 01/17/23 12:04 CT abd pelvis IV con only Stat 01/22/23 09:39 FL video swallow Routine Pending Results Patient Have Any Pending Studies at Discharge: No Discharge Instructions Given to Patient (Per Discharging Provider) MEDICATION CHANGES: Continue Depakote, which was started on admission. Keppra discontinued. Seroquel resumed at lower dose - 12.5mg BID. SUMMARY OF TEST RESULTS: You were admitted to hospital from [facility] 10/05 self-removal of PEG tube. Patient has significant improvement since initial admission to [place] although still requiring 1:1 for impulsivity Transitioned from Keppra to Depakote during admission per psychiatry and neuro input. Resumed low-dose Seroquel per psychiatry. Repeat sodium level in next few days. QTc normal. NSVT-resolved. Continue Lopressor-dose uptitrated given persistent tachycardia Underwent speech eval and no tracheal aspiration noted on video barium swallow. PPN discontined and patient tolerating PO finger foods but requires 1:1 feeding assistance due to impulsivity and tendency to eat too quickly Also needs supervision with polysipdia due to impulsive drinking to keep sodium at appropriate level. Urinary retention noted but patient pulled out mccarthy - monitor off of mccarthy with bladder scans, intermittent straight cath as needed. Outpatient urology evaluation if becomes an issue. Sacral wound- Empirically on doxycycline-- finished 5-day course. Continue wound care Discharging back to [facility]. PENDING TEST RESULTS: None RECOMMENDATIONS FOR FOLLOW-UP: Follow up with PCP as scheduled. Continue medication regimen as scheduled aside from changes noted above. OTHER INSTRUCTIONS: Seek medical attention if you have: * temperature above 101 * chest pain or trouble breathing * abdominal pain, nausea, vomiting * diarrhea, dark stools or bloody stools * any unanswered questions or concerns Call 911 if symptoms are severe. Please take good care of yourself. Call if you have any questions or problems. You can reach a [facility] hospitalist on duty at [facility] 24 hours a day by calling [phone]. Total Time Total Time Spent Total Time Spent (In Minutes): 55 Supervising Physician Co-Signing Physician Notes Patient was seen and examined independently at bedside. Chart reviewed. Case discussed with Elena Perez PA-C and agree with the documentation above. Patient has been medically stable, awake alert and appropriately behaving since I have assumed her care. She mumbles but answers simple questions intermittently. She is on 1:1 but not impulsive or agitated. She has been having normal oral intake and voiding without any issues. She has been ambulating with the aides. Seen by psych and resumed on depakote and low dose seroquel- Needs to monitor sodium and QTc which will be done at the rehab. Need to monitor her to avoid impulsive drinking to avoid hyponatremia. Stable to go to the rehab. Rest as per the note above.
[2023-02-01] MEDS: ENOXAPARIN INJ 40 MG/0.4 ML SYR SQ SCH (17:44)
== END 2023-02-01 18:41 | DRG 919 ==
LOC: ED 09:35 → EDINP 15:20 → SUATTDRO 15:20 → 2W 17:56 → 2S 01-20 09:29 → 3W 01-25 13:30